=== PATIENT | male | born 1935 | race Caucasian/White ===

== ENCOUNTER 2017-09-06 20:21 | Emergency (ER) | payer OTHER ==
[~2017-09-06] VITALS: Ht 165.1 cm; Wt 74.8 kg
[~2017-09-06 20:21] MED LIST: AFEDITAB; AMLO5 PO; ASPI325 PO; ASPI325EC PO; ATEN100; ATOR40TA; CHOL10002 PO; CIPR500 PO; CLOP75 PO; CYAN1000 PO; DILT360ER; DILT60; DIPASPER; DOXAZOSIN; FERR325 PO; FLUT110OIA; GABA100 PO; GABA300; GLIP10; GLUCOSAMINE-CH1 EA10 PO; HYDACE5325 PO; HYDCHL25 PO; HYDROCHLOROTHIAZIDE; Humalog100 UNIT/1 SC; INSUL100I SC; INSULANI; INSULANPEN SC; INSULANPEN SQ; IRON150C PO; LEVSOD88 PO; LORA10 PO; LORA2 PO; LOSA25 PO; LOSARTAN POTAS100 MG PO; MAGCHL64ER PO; METF500C PO; METF850; METR500 PO; NAPR250; OMEG1CAP30 PO; PANT40 PO; PROSTATE HEALT1 EACH PO; Pravastatin Sod40 MG PO; RANI150 PO; SILSUL1TC TOP; Salmon Oil 1,01 EACH PO; VALS80
[2017-09-06] MEDS ORDERED: FERROUS SULFATE PO (20:32)
[2017-09-06] MEDS ORDERED: AMLO10 PO (20:32)
[2017-09-06] MEDS ORDERED: LEVSOD88 PO (20:32)
[2017-09-06] MEDS ORDERED: PANT40 PO (20:33)
[2017-09-06] MEDS ORDERED: METF500C PO (20:33)
[2017-09-06] MEDS ORDERED: GABA100 PO (20:34)
[2017-09-06] MEDS ORDERED: CLOP75 PO (20:35)
[2017-09-06] MEDS ORDERED: LOSA50 PO (20:35)
[2017-09-06] MEDS ORDERED: RANI150 PO (20:35)
[2017-09-06] MEDS ORDERED: PRAV20 PO (20:35)
[2017-09-06] MEDS ORDERED: HYDCHL25 PO (20:36)
[2017-09-06 20:55] LABS: Source, Urine Clean Catch
[2017-09-06 20:56] LABS: BASOPHILS ABSOLUTE AUTO 0.07 K/mm3 (0.00-0.23); BASOPHILS PERCENT AUTO 1 % (0-2); EOSINOPHILS ABSOLUTE AUTO 0.12 K/mm3 (0.00-0.68); EOSINOPHILS PERCENT AUTO 1 % (0-6); Hemoglobin 12.4 g/dL (13.5-17.5); IMMATURE GRAN ABSOLUTE AUTO 0.04 K/mm3 (0.00-0.10); IMMATURE GRAN PERCENT AUTO 0 % (0-1); LYMPHOCYTES ABSOLUTE AUTO 1.44 K/mm3 (0.84-5.20); LYMPHOCYTES PERCENT AUTO 14 % (21-46); MONOCYTES ABSOLUTE AUTO 0.85 K/mm3 (0.16-1.47); MONOCYTES PERCENT AUTO 8 % (4-13); Mean Corpuscular HGB Conc 35.4 g/dL (31.5-36.5); Mean Corpuscular Volume 85 fL (80-100); Mean Platelet Volume 9.3 fL (9.1-12.4); NEUTROPHILS ABSOLUTE AUTO 7.93 K/mm3 (1.96-9.15); NEUTROPHILS PERCENT AUTO 76 % (41-73); Platelet Count 237 K/mm3 (150-400); RDW Coefficient Variation 12.6 % (11.7-14.2); RDW Standard Deviation 38.5 fL (35.1-46.3); Red Blood Cell Count 4.13 M/mm3 (4.30-5.90); White Blood Cell Count 10.45 K/mm3 (4.00-11.30)
[2017-09-06 20:57] LABS: Bilirubin, Urine Neg (Neg); Blood, Urine 1+ (Neg); Glucose Qualitative, Urine Neg (Neg); Ketones, Urine Neg (Neg); Leukocyte Esterase, Urine Neg (Neg); Nitrite, Urine Neg (Neg); Protein, Urine 2+ (Neg); Specific Gravity, Urine 1.005 (1.003-1.022); Urobilinogen, Urine NORM (Normal)
[2017-09-06 21:07] LABS: Appearance, Urine Clear (Clear); Color, Urine Yellow (P-Yellow)
[2017-09-06 21:13] LABS: Amorphous Light (0-Heavy); Bacteria Not Seen /hpf; Red Blood Cells, Urine 0-2 /hpf (0-2); Squamous Epithelial Cells Not Seen /hpf (Few); White Blood Cells, Urine Not Seen /hpf (0-5)
[2017-09-06 21:16] LABS: Alanine Aminotransfer (ALT/SGP 26 U/L (12-78); Albumin, Blood 3.8 g/dL (3.4-5.0); Alk Phos 91 U/L (50-136); Anion Gap 11 mmol/L (6-16); Aspartate Aminotrans (AST/SGOT 20 U/L (12-37); Bilirubin, Total 0.4 mg/dL (0.1-1.0); Blood Urea Nitrogen 23 mg/dL (8-24); Bun/Creatinine Ratio 23.4 (12.0-20.0); CO2, Blood 22 mmol/L (21-32); Calcium, Blood 9.9 mg/dL (8.5-10.1); Chloride, Blood 108 mmol/L (98-108); Creatinine, Blood 0.98 mg/dL (0.60-1.20); Globulin, Blood 3.9 g/dL (2.2-4.0); Glomerular Filtration Rate >60 (60-); Glucose, Blood 107 mg/dL (70-99); Potassium, Blood 3.7 mmol/L (3.5-5.5); Sodium, Blood 141 mmol/L (136-145); Total Protein, Blood 7.7 g/dL (6.4-8.2)
[2017-09-06] MEDS ORDERED: INSULANPEN SC ×2 (22:08)
[2017-09-06] MEDS ORDERED: Novolog100 UNIT/1 SC (22:09)
[2017-09-07 00:29] LABS: Troponin I <0.015 ng/mL (0.000-0.040)
[2018-01-13] MEDS ORDERED: HYDR1TAB94 PO (13:13)
[2018-01-13] MEDS ORDERED: CLOP75 PO (13:15)
[2018-01-13] MEDS ORDERED: Naprosyn500 MG PO (14:22)
[2018-01-13] MEDS ORDERED: Percocet 5-3251 EACH PO (14:22)
== END 2017-09-07 01:02 | disposition home or self-care (01) ==
LOC: ER 20:21
PROVIDERS: Emergency Medicine
DX: R42 Dizziness and giddiness (principal); R55 Syncope and collapse; E11.9 Type 2 diabetes mellitus without complications; I10 Essential (primary) hypertension; I48.91 Unspecified atrial fibrillation; Z88.0 Allergy status to penicillin; Z88.1 Allergy status to other antibiotic agents; Z79.899 Other long term (current) drug therapy; Z79.4 Long term (current) use of insulin; Z87.891 Personal history of nicotine dependence; Z86.73 Personal history of transient ischemic attack (TIA), and cerebral infarction without residual deficits
CPT/HCPCS: 36415; 80053; 81001; 83880; 84484; 85025; 93005; 93010; 99283

== ENCOUNTER 2018-01-13 12:30 | Emergency (ER) | END 2018-01-13 18:09 | disposition home or self-care (01) ==

== ENCOUNTER 2018-12-18 20:19 | Inpatient (IN) | payer OTHER ==
[~2018-12-18] VITALS: Ht 175.3 cm; Wt 63.7 kg
[~2018-12-18 20:19] MED LIST changes: +AMLO10 PO; +FERROUS SULFATE PO; +HYDR1TAB94 PO; +LOSA50 PO; +Naprosyn500 MG PO; +Novolog100 UNIT/1 SC; +PRAV20 PO; +Percocet 5-3251 EACH PO; +Synthroid88 MCG PO
[2018-12-18 21:23] LABS: BASOPHILS ABSOLUTE AUTO 0.05 K/mm3 (0.00-0.23); BASOPHILS PERCENT AUTO 1 % (0-2); EOSINOPHILS ABSOLUTE AUTO 0.14 K/mm3 (0.00-0.68); EOSINOPHILS PERCENT AUTO 2 % (0-6); Hematocrit 33.1 % (37.0-53.0); IMMATURE GRAN ABSOLUTE AUTO 0.03 K/mm3 (0.00-0.10); IMMATURE GRAN PERCENT AUTO 0 % (0-1); LYMPHOCYTES ABSOLUTE AUTO 1.44 K/mm3 (0.84-5.20); LYMPHOCYTES PERCENT AUTO 18 % (21-46); MONOCYTES PERCENT AUTO 10 % (4-13); Mean Corpuscular HGB Conc 33.2 g/dL (31.5-36.5); Mean Corpuscular Volume 93 fL (80-100); Mean Platelet Volume 9.3 fL (9.1-12.4); NEUTROPHILS ABSOLUTE AUTO 5.39 K/mm3 (1.96-9.15); NEUTROPHILS PERCENT AUTO 69 % (41-73); Platelet Count 203 K/mm3 (150-400); RDW Standard Deviation 47.7 fL (35.1-46.3); Red Blood Cell Count 3.55 M/mm3 (4.30-5.90); White Blood Cell Count 7.85 K/mm3 (4.00-11.30)
[2018-12-18 21:35] LABS: Alanine Aminotransfer (ALT/SGP 23 U/L (12-78); Albumin, Blood 3.3 g/dL (3.4-5.0); Alk Phos 107 U/L (50-136); Anion Gap 9 mmol/L (6-16); Aspartate Aminotrans (AST/SGOT 18 U/L (12-37); Bilirubin, Total 0.5 mg/dL (0.1-1.0); Blood Urea Nitrogen 16 mg/dL (8-24); Bun/Creatinine Ratio 19.3 (12.0-20.0); CO2, Blood 26 mmol/L (21-32); Calcium, Blood 9.4 mg/dL (8.5-10.1); Chloride, Blood 105 mmol/L (98-108); Creatinine, Blood 0.83 mg/dL (0.60-1.20); Globulin, Blood 3.4 g/dL (2.2-4.0); Glomerular Filtration Rate >60 (60-); Glucose, Blood 124 mg/dL (70-99); Potassium, Blood 3.9 mmol/L (3.5-5.5); Sodium, Blood 140 mmol/L (136-145); Total Protein, Blood 6.7 g/dL (6.4-8.2)
[2018-12-18 21:40] LABS: International Normalized Ratio 0.96; Prothrombin Time Results 10.2 Sec (9.7-11.5)
[2018-12-19 02:37] LABS: Source, Urine Clean Catch
[2018-12-19 02:40] LABS: Bilirubin, Urine Neg (Neg); Blood, Urine 2+ (Neg); Glucose Qualitative, Urine Neg (Neg); Ketones, Urine 1+ (Neg); Leukocyte Esterase, Urine Neg (Neg); Nitrite, Urine Neg (Neg); Protein, Urine 4+ (Neg); Urobilinogen, Urine NORM (Normal)
[2018-12-19 02:47] LABS: Appearance, Urine Clear (Clear); Color, Urine Yellow (P-Yellow)
[2018-12-19 02:48] LABS: Squamous Epithelial Cells Not Seen /hpf (Few); White Blood Cells, Urine Rare /hpf (0-5)
[2018-12-19 02:49] LABS: Bacteria Rare /hpf; Hyaline Casts 0-2 /lpf (0-2)
--- NOTE | 2018-12-19 06:39 | NUR ---
SUMMARY NO ACUTE CHANGES NOTED SINCE ADMISSION TO THE FLOOR. PT REMAINS CONFUSED AND LETHARGIC. VSS, RESP UNLABORED. PT WILL RESPOND TO VERBAL STIMULATION. BED ALARM FOR SAFETY. FAMILY HAS NOT BEEN IN CONTACT. ER NURSE STATED THAT SHE HAD LEFT VOICEMAILS LETTING THE FAMILY KNOW THEY NEEDED TO CONTACT US. PT'S SON SAID HE WAS GOING TO GET THE PT'S AND COME BACK BUT NEVER RETURNED. PT IS ON ROOM AIR. C-COLLAR IN PLACE UPON ADMISIION, PT IS INCONTINENT, ATTENDS IN PLACE, CHANGED PRN. CALL LIGHT IN REACH, WCTM.
--- NOTE | 2018-12-19 13:49 | NUR ---
Patient is lying in bed and resting but easily awakens to the sound of his name. Patient shared about his family, his boo and his current medical status. I listened empathically, provided a calming presence and provided prayer. While I was praying patient would interupt and add to the list the things he would like me to pray for. This went on for several requests and was quite endearing. Patient responded well and showed evidence of an elevated mood.
--- NOTE | 2018-12-19 16:20 | NUR ---
SHIFT SUMMARY THE PATIENT PRESENTED THIS SHIFT WITH VITALS WNL, A&O TO SELF AND SOME SURROUNDINGS, AND WITH LUNG SOUNDS THAT WERE DIMINISHED THROUGHOUT. THE PATIENT HAS DIFFICULTY COMMUNICATING WITH ANY THING MORE THAN A GARRY OR NO ANSWERS. THE PATIENT HAS SHOWN IMPULSIVE BEHAVIORS THIS AFTERNOON, GETTING OUT OF BED OR OUT OF HIS CHAIR WITHOUT HELP. THE PATIENT HAD A B/M THIS AFTERNOON. THE PATIENT IS RESTING AT THIS TIME, WILL CONTINUE TO MONITOR.
--- NOTE | 2018-12-20 04:34 | NUR ---
SUMMARY: 83 Y/O MALE AT BEGINNING SHIFT CLIMBED OOB BED AND BECAME COMBATIVE WITH STAFF TRYING TO ASSIST BACK TO BED. PT PLACED IN SIMA VEST WITH 4 POINT SOFT WRIST RESTRAINT ( NOTIFIEED FOR ORDER). PT SLEPT COMFORTABLY ALL EVENING AND REPOSITION Q2H BY STAFF AND ASSISTED WITH ADLS. PTS THOUGHT PROCESS IS DISORGANIZED WITH MUMBLING TO SELF NOTED AT TIMES WHILE STAFF AT SIDE. PT APPEARS TO HAVE NO PAIN, NO NAUSEA NOTED. PTS BED ALARM APPLIED, BED LOW POSITION, [place] J COLLAR INTACT.
[2018-12-20 06:07] LABS: CHOL/HDL RATIO 3.4; Cholesterol 200 mg/dL (50-200); HDL Cholesterol 58 mg/dL (>39); Low Density Lipoprotein Chol 116 mg/dL (0-110); Triglycerides 129 mg/dL (30-160); Very Low Density Lipoprot Chol 25 mg/dL (6-32)
--- NOTE | 2018-12-20 12:44 | NUR ---
ECHOCARDIOGRAM COMPLETE
--- NOTE | 2018-12-20 16:54 | NUR ---
SHIFT SUMMARY NO ACUTE CHANGES. PATIENT UP IN CHAIR FOR MEALS. PT WORKED WITH PATIENT TODAY. SPEECH EVALUATED PATIENT, REGULAR DIET RECOMMENDED. PATIENT COMBATIVE AND AGITATED WITH PERSONAL CARE AND REDIRECTION. PATIENT IN POSY VEST. NO COMPLAINTS OF PAIN, NAUSEA, OR SHORTNESS OF BREATH. PATIENT NAPPING IN THE AFTERNOON. FAMILY CAME TO VISIT BUT PATIENT WAS YELLING AT THEM TO LEAVE. CALL LIGHT IN REACH, WILL CONTINUE TO MONITOR.
--- NOTE | 2018-12-21 06:40 | NUR ---
12/21/18 0545 AWAKE AND TALKING HAPPILY. VITALS STABLE THIS AM. DENIES ANY S/S OR DISCOMFORT. REPOSITIONED Q 2 HOURS BUT DOES MOVE AROUND IN BED AND LIKES TO BE SUPINE. OCC. VISUAL HALLUCINATIONS LAST NIGHT. OCC. COMBATIVE WITH TURNING BUT WILL HELP TURN WHEN ASKED. INCONT. OF URINE AND STOOL THIS SHIFT.
--- NOTE | 2018-12-21 17:14 | NUR ---
REPORTED EPISODES DIARRHEA TO DR. SHEPHERD NO NEW ORDERS RECEIVED.
--- NOTE | 2018-12-21 18:37 | NUR ---
SHIFT SUMMARY NO ACUTE CHANGES. PATIENT INCREASINGLY COMBATIVE WITH CARE. SEVERAL STAFF REQUIRED TO ASSIST WITH ATTENDS CHANGE AND LINEN CHANGE DUE TO HITTING AND KICKING. PATIENT CONTINUES TO REQUIRE POSY VEST. PATIENT HAD SEVERAL EPISODES OF DIARRHEA THIS SHIFT, IS AWARE. CALL LIGHT IN REACH, WILL CONTINUE TO MONITOR.
--- NOTE | 2018-12-22 00:59 | NUR ---
12/22/18 0050 YELLING "KEEP CLEAR! WATCH OUT!" VISUAL AND AUDITORY HALLUCINATIONS PRESENT. RN REASSURED BUT JUST YELLING PROFANITY TO RN.
--- NOTE | 2018-12-22 02:14 | NUR ---
12/22/18 0145 C/O general abd. discomfort and needing to have a BM. AGREED TO TAKING A SUPP. BUT WHEN RN CAME WITH IT SHE DECLINED SUPP FOR NOW.
--- NOTE | 2018-12-22 06:44 | NUR ---
12/22/18 0630 UNABLE TO OBTAIN STOOL SAMPLE DUE TO STOOLS BEING WATERY IN ATTEND/LINENS. VITALS STABLE. GOOD ORAL AND BALWINDER-CARE WITH EACH TURN.
--- NOTE | 2018-12-22 09:55 | NUR ---
NOTIFIED DR. PEACE PT HAS BLOOD SUGARS CHECKED AC/HS BUT DOES NOT HAVE ANY INSULIN COVERAGE ORDERED AND THE PT'S BLOOD SUGAR IS [address] PEAEC SAID TO PUT PT ON HUMALOG MEDIUM SLIDING SCALE. DR. PEACE SAID TO D/C ORDER FOR STOOL SAMPLE TO RULE OUT CDIFF AND TO CALL HIM IF ABLE TO COLLECT A STOOL SAMPLE FOR ORDERS. NO OTHER NEW ORDERS AT THIS TIME.
--- NOTE | 2018-12-22 18:32 | NUR ---
SHIFT SUMMARY- PT RESPONDS TO VERBAL STIMULI. PT DOES NOT APPEAR TO BE IN ANY PAIN/DISCOMFORT. PT COMBATIVE WITH CARE AT TIMES. PT IN SIMA. MEDS GIVEN PER EMAR. RESP E/U ON RA. BEDREST AT THIS TIME. TURNS Q2H. FAMILY FRIEND IN TO VISIT THIS PM. NO OTHER SIGNIFICANT CHANGES THIS SHIFT.
--- NOTE | 2018-12-23 03:20 | NUR ---
12/22/182129 SPOKE WITH ON PHONE AND UPDATED HER ON PT'S CONDITION. INFORMED HER THAT PT WAS ON RESTRAINTS DUE TO HIS CONFUSION/COMBATIVENESS AND TO KEEP HIM SAFE. SHE DID AGREE WITH THIS SAFETY MEASURE. SHE WANTED TO KNOW "HIS PROGNOSIS". INFORMED HER THAT SHE WILL NEED TO SPEAK WITH THE MD REGARDING THIS QUESTION.
--- NOTE | 2018-12-23 07:28 | NUR ---
NURSE CALLED TO VERIFY THAT PT IS BEING MONITORED AT THIS TIME
--- NOTE | 2018-12-23 09:44 | NUR ---
UPON MORNIGN MED ADMINISTRATION, PT REFUSED HELP WITH LIFT CUP AND STRAW TO MOUTH. PT DID NOT ANSWER WHEN NURSE ASKED HOW PT TAKES HIS PILLS. WHEN NURSE REPEATED THE QUESTION, PT YELLED AT NURSE FOR REPEATING THE QUESTION. PT WAS UNSUCESSFULLY ATTEMPTING TO GET STRAW INTO HIS MOUTH, UNAWARE HE WAS AIMING STRAW INTO COLLAR. PT THEN WAS ABLE TO REACH HIS MOUTH AFTER MULTIPLE ATTEMPTS. AFTER A FEW MINUTES, NURSE HANDED PT HIS MEDICATIONS. PT SAT WITH THEM IN HIS HANDS. AFTER A FEW MORE MINUTES, NURSE ASKED PATIENT TO TAKE HIS MEDICATIONS. HE THEN YELLED AT NURSE. NURSE ASKED HIS TO EITHER TAKE THE MEDICATIONS OR HAND THEM BACK TO NURSE. PT REFUSED BOTH. PILLS THEN SPILLED ALL OVER HIS BED. NURSE COLLECTED PILLS AND CHARTED "NOT GIVEN, PT REFUSED" PT THEN SAID "MAYBE I'LL ACCUSE YOU OF STEALING MY PILLS!" NURSE THEN EXITED THE ROOM AND NOTIFIED CHARGE NURSE
--- NOTE | 2018-12-23 18:38 | NUR ---
SHIFT SUMMARY PT AXO TO SELF AND SPOUSE BUT HAVING AUDITORY AND VISUAL HALLUCINATIONS THIS SHIFT. AC STARTED THIS SHIFT PER EMAR THOUGH PT REFUSED HIS MORNING MEDICATIONS, SEE NOTE. UP FOR A WALK WITH PHYSICAL THERAPY, SEE NOTE. PT CONTINUES TO NEED SIMA FOR SAFETY. IV PATENT AND SALINE LOCKED. BED IN LOW POSITION, CALL LIGHT WITHIN REACH, BED ALARM ON. PT ON MONITOR WELL.
--- NOTE | 2018-12-24 03:44 | NUR ---
SHIFT SUMMARY PT RESTING QUIETLY, LF IN SIMA VEST, WATCHING TV DURING SHIFT REPORT. PT'S SPEECH IS DIFFICULT TO UNDERSTAND; PARTLY D/T ACCENT AND PARTLY D/T CONFUSION. PT CAN BE PLEASANT AND CO-OP AT TIMES, IF KEPT DISTRACTED WHILE PROVIDING CARE. PT SOMETIMES BECOMES AGITATED AND OUT OF CONTROL IF HE DOES NOT WANT TO BE HELPED. PER SHIFT REPORT, PT UNABLE TO RETURN HOME UNABLE TO CARE FOR HIM WHEN OUT OF CONTROL. NO S/SX OF DISTRESS NOTED OR REPORTED. PT DENIED PAIN. BED ALARM ON FOR SAFETY. CALL LT IN REACH.
--- NOTE | 2018-12-24 07:31 | NUR ---
THIS MORNING, WHEN JULIA FERRER ATTEMPTED TO MEASURE VITAL SIGNS, PT REFUSED. PT BECAME AGGITATED AND COMBATIVE. HEEL NAILING MACHINE OPERATOR NOTIFIED NURSE.
--- NOTE | 2018-12-24 09:52 | NUR ---
AT 0831 NURSE ENTERED ROOM TO ASSESS PT. PT AGGITATED AND SWINGING AT NURSE, ATTEMPTING OOB, KICKING LEGS. NURSE LEFT ROOM TO ORDER PRN AGGITATION MEDICATION PER EMAR. NURSE REQUESTED FROM PHARMACY THEN WAITED FOR MED TO ARRIVE. UPON ARRIVAL NURSE IN TO ASSESS PT AND GIVE THAT MEDICATION. PHYSICIAN IN ROOM. PT NO LONGER AGGITATED AT THAT TIME SO AGGITATION MED WAS NOT ADMINISTERED. PT COOPERATIVE AFTER DR PEACE IN.
--- NOTE | 2018-12-24 19:34 | NUR ---
SHIFT SUMMARY PT AXO TO SELF, BIRTHDAY AND PLACE. PT CONTINUES TO HALLUCINATE A REACH FOR THINGS THAT ARE NOT THERE. PSYCHIATRY CONSULT THIS SHIFT, SEE NOTE. PT STOOD AND USED URINAL TO VOID 300ML. URINE WAS TEA COLORED WITH STRONG ODOR. PT STOOL CONTINUES TO BE LIQUID WITH SOME "CHUNKS" IN IT. PT UP TO CHAIR FOR MEALS, REQUIRED FEEDING ASSISTANCE THOUGH REFUSES HELP AT TIMES. SIMA CONTINUES TO BE INDICATED FOR RISK FOR FALLS DESPITE BED ALARM AND MONITOR. NURSE DID NOT FEEL IT WAS SAFE TO REMOVE THIS SHIFT. IV PATENT, SALINE LOCKED AND CONCEALED. BED IN LOW POSITION, CALL LIGHT WITHIN REACH THOUGH PT DOES NOT CALL. BED ALARM ON.
--- NOTE | 2018-12-25 04:00 | NUR ---
SHIFT SUMMARY PT AWAKE AT START OF SHIFT, RESTING QUIETLY, TALKING TO HIMSELF. DINNER TRAY MOSTLY UNTOUCHED, BUT PT REFUSED ASSISTANCE WITH EATING AND DID NOT WANT TO EAT ANYTHING HIMSELF. PT A LITTLE CALMER TONIGHT THAN LAST NIGHT. HAS BEEN ABLE TO SLEEP MOST OF SHIFT. WAKES EASILY FOR CARE. PT WAITING PLACEMENT PT'S UNABLE TO CARE FOR HIM ANY MORE. NO ACUTE CHANGES TO PRESENT. WILL CONTINUE TO MONITOR. BED ALARM ON FOR SAFETY.
--- NOTE | 2018-12-25 10:42 | NUR ---
PT WAKE AND ATTEMPTING TO CLIMB OOB, REMOVED HIS C COLLAR AND BRIEF. NEW BRIEF PLACED, C COLLAR REPLACED AND PT REPOSITIONED IN THE BED, PT WAS FAIRLY COOPERATIVE WITH THE ABOVE. ATTEMPTED TO GIVE MEDICATIONS AND PT REFUSED, SPITTING OUT PILLS, THREATENING TO HIT RN AND THEN THREW HIS WATER AT STAFF.
--- NOTE | 2018-12-25 18:46 | NUR ---
NO ACUTE CHANGES NOTED THIS SHIFT. PT HAS HAD PERIODS OF COOPERATION AND PERIODS OF IMPULSIVE BELIGERENT BEHAVIOR. HE HAS BEEN REMOVED FROM THE SIMA VEST AND HAS BEEN COOPERATIVE WITHT HE TRAFFIC OPERATIONS MANAGER, USING THE BSC. WILL CONTINUE TO MONITOR AND REPORT TO AARON PENNY
--- NOTE | 2018-12-26 04:32 | NUR ---
Shift summary: Elba has been unhooked for shift. Pt has tried to get out of bed several times but has not fallen. Pt requires both the bed alarm and the school bus monitor to keep him in bed. Pt very unsteady on his feet. Pt does not understand a call light at all. C- collar on at all times.
[2018-12-26 07:40] LABS: Source, Urine Voided
[2018-12-26 07:43] LABS: Appearance, Urine Clear (Clear); Bilirubin, Urine Neg (Neg); Blood, Urine Neg (Neg); Color, Urine Yellow (P-Yellow); Glucose Qualitative, Urine Neg (Neg); Ketones, Urine Neg (Neg); Leukocyte Esterase, Urine Neg (Neg); Nitrite, Urine Neg (Neg); Protein, Urine Neg (Neg); Specific Gravity, Urine 1.015 (1.003-1.022); Urobilinogen, Urine NORM (Normal)
--- NOTE | 2018-12-26 11:39 | NUR ---
SPOKE WITH DR. PEACE ABOUT THE PATIENT WHO REFUSED HIS MORNING MEDICATIONS. HIS BLOOD SUGAR CAME OUT AT 407 AT LUNCHTIME. CALLED THE DOCTOR AND EXPLAINED THE MORNING. HE REQUESTED A SECOND BLOOD SUGAR DONE AT 1300 AND PATIENT WAS GIVEN THE 12 UNITS OF INSULIN HE WAS AGREEABLE TO THIS AT THIS TIME.
--- NOTE | 2018-12-26 16:20 | NUR ---
SHIFT SUMMARY PATIENT PLEASANT, NO ACUTE CONCERNS. MILDLY UNCOOPERATIVE. HE DID NOT TAKE HIS MEDICATIONS TODAY ALTHOUGH HE DID TAKE HIS INSULIN AT LUNCH TIME. WILL FACILITATE CHANGE IF NEEDED. NO ACUTE CONCERNS, NO PAIN NOTED BY THE PATIENT. CURRENTLY THE PATIENT IS RESTING. HE HAD A SHOWER TODAY AND DID VERY WELL. STILL IMPULSIVE NO RESTRAINTS AT THIS TIME.
--- NOTE | 2018-12-27 06:23 | NUR ---
Rn summary: Patient is alert to self, knows month and year. He thought he was at [facility]. Pt unable to answer rounding questions appropriately. Pt is up at times impulsively. Pt needs 1 assist. Lungs were clear. No weakness noted. Pt continues with cervical collar. Pt takes pills whole with water. Pt has rested well most of night. Bed alarm on and call light in reach. Plan is for appropriate placement.
--- NOTE | 2018-12-27 17:54 | NUR ---
SHIFT SUMMARY PATIENT HAS BEEN MUCH MORE PLEASANT AND REDIRECTABLE TODAY. AT THIS TIME I BELIEVE THE PATIENT IS GETTING BORED AND HAS BEEN REDIRECTED WITH OTHER OPPORTUNITIES.
--- NOTE | 2018-12-28 04:44 | NUR ---
SHIFT SUMMARY: 83 Y/O MALE RESTED COMFORTABLY ALL EVENING. PT REMOVED C-COLLAR X1 LAST NIGHT AND WAS IMMEDIATELY REPLACED BACK ON BY THIS NURSE. PT IS ALERT AND ORIENTED X2, FOLLOWING ALL SIMPLE VERBAL COMMANDS. PT DENIES PAIN OR NAUSEA. PTS BED ALARM APPLIED, BED LOW POSITION, CALL LIGHT AT SIDE. PT VOIDED PER URINAL WITHOUT ISSUE.
--- NOTE | 2018-12-28 16:27 | NUR ---
SHIFT SUMMARY PATIENT HAS BEEN WALKING THE HALLS WITH THE AID TODAY. NO ACUTE CONCERNS. STILL IMPULSIVE BUT HAS BEEN WORN OUT WITH EXTRA WALKS. WILL ASSESS FOR ANY CHANGES.
--- NOTE | 2018-12-28 21:12 | NUR ---
PT BLOOD GLUCOSE 443, Parisa MORENO, PUTTY MAKER CALLED WITH ORDERS TO RECHECK IN ONE HOUR AND INCREASE TO HUMALOG HIGH SLIDING SCALE.
--- NOTE | 2018-12-29 00:02 | NUR ---
BLOOD GLUCOSE 48, PT DRANK 240ML APPLE JUICE, PLAN TO RECHECK GLUCOSE IN 1 HOUR. LATRELL BRICE, METERS SUPERINTENDENT NURSE ADVISED.
--- NOTE | 2018-12-29 01:01 | NUR ---
PT BLOOD GLUCOSE 79, PATIENT RESTING COMFORTABLY. PLAN RECHECK GLUCOSE IN 1 HOUR. CHARGE NURSE LATRELL Seals RN ADVISED AND IN CONCURRENCE.
--- NOTE | 2018-12-29 03:54 | NUR ---
SHIFT SUMMARY: 83 Y/O MALE RESTED COMFORTABLY ALL EVENING. PT STILL DECLINING TO ALLOW STAFF TO APPLY C-COLLAR (NO NEUROLOGICAL DEFICITS NOTED). PT HAD ISSUES WITH HIGH BLOOD SUGAR AT [phone] WITH COVERAGE GIVEN. PTS BLOOD SUGAR RECHECKED AND WITH LAST CHECK AT 0300 REFLECTING 79. PT CONTINUES TO CLIMB OOB IMPULSIVELY WITHOUT RINGING CALL LIGHT FOR ASSISTANCE (BED ALARM APPLIED). PT ALERT AND ORIENTED X 2; ABLE TO FOLLOW SIMPLE VERBAL COMMANDS. PT DENIES PAIN OR NAUSEA. PTS BED IN LOW POSITION, CALL LIGHT AT SIDE.
--- NOTE | 2018-12-29 07:39 | NUR ---
VERIFIED VIDEO MONITORING CALLED VIDEO MONITOR ANNALISA MCALLISTER TO VERIFY THE PT WAS BEING MONITORED VIA CAMERA FOR SAFETY. SHE CONFIRMED MONITORING
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
--- NOTE | 2018-12-30 05:11 | NUR ---
SHIFT SUMMARY: 83 Y/O MALE UP AMBULATED AROUND ENTIRE LOOP OF NURSING FLOOR VIA WALKER X 1 STANDBY ASSIST WITH GAIT SLOW AND STEADY. PT ALERT AND ORIENTED X3 AND CONVERSED WITH STAFF WITH ORGANIZED THOUGHTS. PT WORE C-COLLAR ENTIRE SHIFT WITHOUT ISSUE. PT DENIES PAIN OR NAUSEA. PTS BED ALARM APPLIED, BED LOW POSITION, CALL LIGHT AT SIDE.
--- NOTE | 2018-12-30 07:42 | NUR ---
CALLED VIDEO MONITOR CONFIRMED PT IS VIDEO MONITORED WITH MONITOR ANNALISA MCALLISTER
--- NOTE | 2018-12-30 17:36 | NUR ---
SHIFT SUMMARY 83 YR OLD MALE ADMITTED FOR ACUTE ENCEPHALOPATHY. FRACTURED NECK- WEARS A C-COLLAR. CARDIAC/ADA DIET. WALKS INDEPENDENTLY W/FWW -BUT I STANDBY/OBSERVE DUE TO HIS CONFUSION. PILLS WHOLE W/APPLESAUCE. HE IS ACHS. HX: HTN, TIA, AFIB, DM 2. LIVES W/ BUT REQUIRES PLACEMENT. ANKUR WAS ASSESSING THIS PT, BUT I HAVE HEARD NOTHING FURTHER FROM THEM. CONTINENT. HE IS MUCH IMPROVED FROM LAST WEEK. I AM TOLD HE WAS IN RESTRAINTS THEN. HE IS EASILY RE-DIRECTABLE. CALM AND COOPERATIVE.
--- NOTE | 2018-12-31 04:48 | NUR ---
PHOTORADIO OPERATOR SUMMARY NO ACUTE CHANGES THIS SHIFT. PT AAOX2 WITH SOME INTERMITTENT CONFUSION BUT HAS BEEN PLEASANT AND COOPERATIVE WITH CARE. BED ALARM ON FOR SAFETY PT IS STILL IMPULSIVE BUT HAS FAIRLY STEADY GAIT WITH A 1 PERSON ASSIST. PT DENIES PAIN, SOB, N/V. NO OTHER COMPLAINTS/CONCERNS. VSS, WILL CONTINUE TO MONITOR.
--- NOTE | 2018-12-31 09:22 | NUR ---
REFUSED SOME MEDICATTIONS THIS A.M. SPIT TWO PILLS ACROSS THE ROOM. SEE MAR.
--- NOTE | 2018-12-31 11:12 | NUR ---
KARLI MENDOZA IN ROOM EVALUATING PT.
--- NOTE | 2018-12-31 18:23 | NUR ---
SHIFT SUMMARY PATIENT IS ALERT AND ORIENTED TO PLACE AND SITUATION. HE SEEMS TO HAVE A DIFFICULT TIME REMEMBERING THINGS SUCH USING THE PHONE. HE HAS ALSO HAD ISSUES WITH INCONTONENECE THROUGHOUT THE DAY BUT IS ABLE TO MAKE HIS WAY TO THE RESTROOM INDEPENDENTLY. HE IS INDEPENDENT IN HIS ROOM AND ENJOYS WALKING IN THE [place]. HIS CAMERA HAS BEEN TURNED OFF FOR THIS REASON. HE CONTINUES TO TAKE HIS PILLS WITH PUDDING DESPITE BEING ABLE TO EAT MEALS AND SWALLOW WELL. HIS WIFES NAME IS KILLIAN--HER PHONE NUMBER IS ON THE BOARD.
--- NOTE | 2019-01-01 04:22 | NUR ---
SLIVER LAP TENDER SUMMARY NO ACUTE CHANGES. PT AAOX2, PLEASANT AND COOPERATIVE. INDEPENDENT IN HIS ROOM. REQUIRES REORIENTATION AT TIMES. DENIES PAIN, SOB, N/V. VSS. PT AWAITING PLACEMENT. WILL CONTINUE TO MONITOR.
[2019-01-01] MEDS ORDERED: ASPI81CH PO (09:15)
[2019-01-01] MEDS ORDERED: XARELTO20 MG PO (09:15)
[2019-01-01] MEDS ORDERED: Humalog100 UNIT/3 SC (09:21)
== END 2019-01-01 11:12 | disposition home health service (06) | DRG 314 ==
LOC: ER 20:19 → MEDS 20:20 → ENPENDDIS 01-01 08:54 → MEDS 01-01 11:12
PROVIDERS: Family Medicine; Nurse Practitioner Psychiatric/Mental Health; Physician Assistant; ADMIT Internal Medicine
DX: T82.897A Other specified complication of cardiac prosthetic devices, implants and grafts, initial encounter (principal); G92 Toxic encephalopathy; I63.9 Cerebral infarction, unspecified; S12.100A Unspecified displaced fracture of second cervical vertebra, initial encounter for closed fracture; R47.01 Aphasia; I10 Essential (primary) hypertension; I35.0 Nonrheumatic aortic (valve) stenosis; Z79.02 Long term (current) use of antithrombotics/antiplatelets; Z95.2 Presence of prosthetic heart valve; E11.9 Type 2 diabetes mellitus without complications; R46.89 Other symptoms and signs involving appearance and behavior; Z87.820 Personal history of traumatic brain injury; Z87.891 Personal history of nicotine dependence; I48.91 Unspecified atrial fibrillation; Z78.1 Physical restraint status; M47.812 Spondylosis without myelopathy or radiculopathy, cervical region; Z79.4 Long term (current) use of insulin; W06.XXXA Fall from bed, initial encounter; Z91.81 History of falling; Y92.234 Operating room of hospital as the place of occurrence of the external cause
CPT/HCPCS: 36415; 70450; 70551; 80053; 80061; 81001; 81003; 82947; 85025; 85610; 92507; 92523; 93005; 93010; 93306; 93880; 96372; 97110; 97112; 97116; 97162; 97166; 97530; 97535; 99285-25; G0378; J1650

== ENCOUNTER 2019-02-02 17:27 | Emergency (ER) | payer OTHER ==
[~2019-02-02] VITALS: Ht 177.8 cm; Wt 59.0 kg
[~2019-02-02 17:27] MED LIST changes: +ASPI81CH PO; +Humalog100 UNIT/3 SC; +XARELTO20 MG PO
[2019-02-02 18:05] LABS: BASOPHILS ABSOLUTE AUTO 0.05 K/mm3 (0.00-0.23); BASOPHILS PERCENT AUTO 1 % (0-2); EOSINOPHILS ABSOLUTE AUTO 0.05 K/mm3 (0.00-0.68); EOSINOPHILS PERCENT AUTO 1 % (0-6); Hematocrit 27.7 % (37.0-53.0); Hemoglobin 9.2 g/dL (13.5-17.5); IMMATURE GRAN ABSOLUTE AUTO 0.08 K/mm3 (0.00-0.10); IMMATURE GRAN PERCENT AUTO 1 % (0-1); LYMPHOCYTES ABSOLUTE AUTO 1.12 K/mm3 (0.84-5.20); LYMPHOCYTES PERCENT AUTO 19 % (21-46); MONOCYTES ABSOLUTE AUTO 0.67 K/mm3 (0.16-1.47); MONOCYTES PERCENT AUTO 11 % (4-13); Mean Corpuscular HGB 30.3 pg (26.0-34.0); Mean Corpuscular HGB Conc 33.2 g/dL (31.5-36.5); Mean Corpuscular Volume 91 fL (80-100); Mean Platelet Volume 9.4 fL (9.1-12.4); NEUTROPHILS ABSOLUTE AUTO 3.93 K/mm3 (1.96-9.15); NEUTROPHILS PERCENT AUTO 67 % (41-73); Platelet Count 178 K/mm3 (150-400); RDW Coefficient Variation 14.2 % (11.7-14.2); Red Blood Cell Count 3.04 M/mm3 (4.30-5.90)
[2019-02-02 18:20] LABS: International Normalized Ratio 1.04
[2019-02-02 18:25] LABS: Ethanol (Alcohol), Blood, Med 18 mg/dL
[2019-02-02 18:33] LABS: Alanine Aminotransfer (ALT/SGP 27 U/L (12-78); Albumin, Blood 2.6 g/dL (3.4-5.0); Alk Phos 85 U/L (50-136); Anion Gap 9 mmol/L (6-16); Aspartate Aminotrans (AST/SGOT 28 U/L (12-37); Bilirubin, Total 0.6 mg/dL (0.1-1.0); Blood Urea Nitrogen 16 mg/dL (8-24); Bun/Creatinine Ratio 18.1 (12.0-20.0); CO2, Blood 22 mmol/L (21-32); Calcium, Blood 7.5 mg/dL (8.5-10.1); Chloride, Blood 110 mmol/L (98-108); Creatinine, Blood 0.88 mg/dL (0.60-1.20); Globulin, Blood 2.5 g/dL (2.2-4.0); Glomerular Filtration Rate >60 (60-); Glucose, Blood 317 mg/dL (70-99); Potassium, Blood 3.1 mmol/L (3.5-5.5); Sodium, Blood 141 mmol/L (136-145); Total Protein, Blood 5.1 g/dL (6.4-8.2)
[2019-05-20] MEDS ORDERED: TRULICITY1.5 MG/0.5 SC (14:19)
[2019-05-20] MEDS ORDERED: VITAMIN D35000 UNIT SL (14:20)
[2019-05-20] MEDS ORDERED: VITAMIN B122500 MCG PO (14:29)
[2019-05-20] MEDS ORDERED: FERSU300 PO (14:31)
[2019-05-20] MEDS ORDERED: FOLI1 PO (14:31)
== END 2019-02-02 18:30 | disposition short-term general hospital (02) ==
LOC: ER 17:27
PROVIDERS: Emergency Medicine
DX: S06.9X9A Unspecified intracranial injury with loss of consciousness of unspecified duration, initial encounter (principal); S12.110A Anterior displaced Type II dens fracture, initial encounter for closed fracture; R07.9 Chest pain, unspecified; V49.9XXA Car occupant (driver) (passenger) injured in unspecified traffic accident, initial encounter; Z88.0 Allergy status to penicillin; Z88.1 Allergy status to other antibiotic agents; Z79.899 Other long term (current) drug therapy; Z79.4 Long term (current) use of insulin; Z79.82 Long term (current) use of aspirin; I10 Essential (primary) hypertension; E11.9 Type 2 diabetes mellitus without complications; Z86.73 Personal history of transient ischemic attack (TIA), and cerebral infarction without residual deficits; I48.91 Unspecified atrial fibrillation; Z87.891 Personal history of nicotine dependence
CPT/HCPCS: 51702; 70450; 71045; 71260; 72125; 74177; 80053; 82947; 83690; 85025; 85610; 85730; 86850; 86900; 86901; 93005; 93010; 96361-59; 96374-59; 99291-25; G0480; J3010; J7030; Q9967

== ENCOUNTER → 2019-03-13 | Outpatient (CLI) | payer OTHER ==
[~2019-03-13] MED LIST changes: +FERSU300 PO; +FOLI1 PO; +METF500 PO; +METTREX2.5 PO; +Norco 5-325 Ta1 EACH PO; +TRULICITY1.5 MG/0.5 SC; +VITAMIN B122500 MCG PO; +VITAMIN D35000 UNIT SL
[2019-03-13 13:20] LABS: Source, Urine Clean Catch
[2019-03-13 15:38] LABS: Bilirubin, Urine Neg (Neg); Blood, Urine 3+ (Neg); Glucose Qualitative, Urine 4+ (Neg); Ketones, Urine Neg (Neg); Leukocyte Esterase, Urine 3+ (Neg); Nitrite, Urine Pos (Neg); Protein, Urine 3+ (Neg); Specific Gravity, Urine 1.015 (1.003-1.022); Urobilinogen, Urine NORM (Normal)
[2019-03-13 15:50] LABS: Appearance, Urine Turbid (Clear); Color, Urine Yellow (P-Yellow)
[2019-03-13 15:51] LABS: White Blood Cells, Urine TNTC /hpf (0-5)
[2019-03-13 15:52] LABS: Bacteria Mod /hpf; Red Blood Cells, Urine 0-2 /hpf (0-2); Squamous Epithelial Cells Few /hpf (Few)
== END | disposition home or self-care (01) ==
LOC: LAB SHORT 13:19 → LAB 13:19 → EDSTATUS 03-13 09:15 → LAB FUT 03-13 09:15
PROVIDERS: Internal Medicine
DX: R30.0 Dysuria (principal)
CPT/HCPCS: 81001; 87077; 87086; 87186

== ENCOUNTER → 2019-03-30 | Outpatient (CLI) | payer OTHER ==
[2019-03-30 12:44] LABS: Source, Urine Clean Catch
[2019-03-30 15:22] LABS: Bilirubin, Urine Neg (Neg); Blood, Urine 2+ (Neg); Glucose Qualitative, Urine 4+ (Neg); Ketones, Urine Neg (Neg); Leukocyte Esterase, Urine 3+ (Neg); Nitrite, Urine Pos (Neg); Protein, Urine 4+ (Neg); Specific Gravity, Urine 1.015 (1.003-1.022); Urobilinogen, Urine NORM (Normal)
[2019-03-30 15:48] LABS: Appearance, Urine Hazy (Clear); Color, Urine Yellow (P-Yellow)
[2019-03-30 15:49] LABS: Bacteria Mod /hpf; Red Blood Cells, Urine 0-2 /hpf (0-2); Squamous Epithelial Cells Not Seen /hpf (Few); White Blood Cells, Urine TNTC /hpf (0-5)
== END | disposition home or self-care (01) ==
LOC: LAB 12:42 → LAB SHORT 12:42
PROVIDERS: Internal Medicine
DX: R30.0 Dysuria (principal)
CPT/HCPCS: 81001; 87077; 87086; 87186

== ENCOUNTER 2019-04-16 12:56 | Emergency (ER) | payer OTHER ==
[~2019-04-16] VITALS: Ht 175.3 cm; Wt 60.8 kg
[~2019-04-16 12:56] MED LIST changes: -FERSU300 PO; -FOLI1 PO; -METF500 PO; -METTREX2.5 PO; -Norco 5-325 Ta1 EACH PO; -TRULICITY1.5 MG/0.5 SC; -VITAMIN B122500 MCG PO; -VITAMIN D35000 UNIT SL
[2019-04-16 13:22] LABS: BASOPHILS ABSOLUTE AUTO 0.06 K/mm3 (0.00-0.23); BASOPHILS PERCENT AUTO 1 % (0-2); EOSINOPHILS ABSOLUTE AUTO 0.04 K/mm3 (0.00-0.68); EOSINOPHILS PERCENT AUTO 1 % (0-6); Hematocrit 32.6 % (37.0-53.0); Hemoglobin 10.8 g/dL (13.5-17.5); IMMATURE GRAN ABSOLUTE AUTO 0.02 K/mm3 (0.00-0.10); IMMATURE GRAN PERCENT AUTO 0 % (0-1); LYMPHOCYTES ABSOLUTE AUTO 1.05 K/mm3 (0.84-5.20); LYMPHOCYTES PERCENT AUTO 16 % (21-46); MONOCYTES ABSOLUTE AUTO 0.65 K/mm3 (0.16-1.47); MONOCYTES PERCENT AUTO 10 % (4-13); Mean Corpuscular HGB 29.8 pg (26.0-34.0); Mean Corpuscular HGB Conc 33.1 g/dL (31.5-36.5); Mean Corpuscular Volume 90 fL (80-100); Mean Platelet Volume 9.4 fL (9.1-12.4); NEUTROPHILS ABSOLUTE AUTO 4.85 K/mm3 (1.96-9.15); NEUTROPHILS PERCENT AUTO 73 % (41-73); Platelet Count 210 K/mm3 (150-400); RDW Coefficient Variation 14.5 % (11.7-14.2); RDW Standard Deviation 47.7 fL (35.1-46.3); Red Blood Cell Count 3.62 M/mm3 (4.30-5.90); White Blood Cell Count 6.67 K/mm3 (4.00-11.30)
[2019-04-16 13:42] LABS: Alanine Aminotransfer (ALT/SGP 20 U/L (12-78); Albumin, Blood 3.2 g/dL (3.4-5.0); Albumin/Globulin Ratio 0.9 (0.8-1.8); Alk Phos 121 U/L (50-136); Anion Gap 6 mmol/L (6-16); Aspartate Aminotrans (AST/SGOT 11 U/L (12-37); Bilirubin, Total 0.4 mg/dL (0.1-1.0); Blood Urea Nitrogen 26 mg/dL (8-24); Bun/Creatinine Ratio 29.8 (12.0-20.0); CO2, Blood 27 mmol/L (21-32); Chloride, Blood 103 mmol/L (98-108); Creatinine, Blood 0.87 mg/dL (0.60-1.20); Globulin, Blood 3.7 g/dL (2.2-4.0); Glomerular Filtration Rate >60 (60-); Glucose, Blood 420 mg/dL (70-99); Sodium, Blood 136 mmol/L (136-145); Total Protein, Blood 6.9 g/dL (6.4-8.2)
[2019-04-16] MEDS ORDERED: CIPR500 PO (14:53)
[2019-04-16] MEDS ORDERED: METF500 PO (14:56)
[2019-04-16] MEDS ORDERED: METTREX2.5 PO (14:57)
[2019-04-16] MEDS ORDERED: PANT40 PO (14:57)
[2019-05-20] MEDS ORDERED: TRULICITY1.5 MG/0.5 SC (14:19)
[2019-05-20] MEDS ORDERED: VITAMIN D35000 UNIT SL (14:20)
[2019-05-20] MEDS ORDERED: VITAMIN B122500 MCG PO (14:29)
[2019-05-20] MEDS ORDERED: FOLI1 PO (14:31)
[2019-05-20] MEDS ORDERED: FERSU300 PO (14:31)
== END 2019-04-16 15:55 | disposition home or self-care (01) ==
LOC: ER 12:56
PROVIDERS: Physician Assistant
DX: K92.2 Gastrointestinal hemorrhage, unspecified (principal); D64.9 Anemia, unspecified; Z88.0 Allergy status to penicillin; Z88.1 Allergy status to other antibiotic agents; Z79.82 Long term (current) use of aspirin; Z79.4 Long term (current) use of insulin; Z79.899 Other long term (current) drug therapy; I10 Essential (primary) hypertension; E11.9 Type 2 diabetes mellitus without complications; I48.91 Unspecified atrial fibrillation; Z86.73 Personal history of transient ischemic attack (TIA), and cerebral infarction without residual deficits
CPT/HCPCS: 36415; 80053; 82272; 85025; 86850; 86900; 86901; 99283

== ENCOUNTER 2019-04-19 10:49 | Emergency (ER) | payer OTHER ==
[~2019-04-19] VITALS: Ht 177.8 cm; Wt 72.6 kg
[~2019-04-19 10:49] MED LIST changes: +METF500 PO; +METTREX2.5 PO
[2019-04-19 11:17] LABS: BASOPHILS ABSOLUTE AUTO 0.06 K/mm3 (0.00-0.23); BASOPHILS PERCENT AUTO 1 % (0-2); EOSINOPHILS ABSOLUTE AUTO 0.06 K/mm3 (0.00-0.68); EOSINOPHILS PERCENT AUTO 1 % (0-6); Hematocrit 32.7 % (37.0-53.0); IMMATURE GRAN ABSOLUTE AUTO 0.03 K/mm3 (0.00-0.10); IMMATURE GRAN PERCENT AUTO 0 % (0-1); LYMPHOCYTES ABSOLUTE AUTO 0.91 K/mm3 (0.84-5.20); LYMPHOCYTES PERCENT AUTO 13 % (21-46); MONOCYTES ABSOLUTE AUTO 0.69 K/mm3 (0.16-1.47); MONOCYTES PERCENT AUTO 10 % (4-13); Mean Corpuscular HGB 30.1 pg (26.0-34.0); Mean Corpuscular HGB Conc 33.6 g/dL (31.5-36.5); Mean Corpuscular Volume 90 fL (80-100); Mean Platelet Volume 9.5 fL (9.1-12.4); NEUTROPHILS ABSOLUTE AUTO 5.47 K/mm3 (1.96-9.15); NEUTROPHILS PERCENT AUTO 76 % (41-73); Platelet Count 190 K/mm3 (150-400); RDW Coefficient Variation 14.3 % (11.7-14.2); RDW Standard Deviation 46.7 fL (35.1-46.3); Red Blood Cell Count 3.65 M/mm3 (4.30-5.90); White Blood Cell Count 7.22 K/mm3 (4.00-11.30)
[2019-04-19 11:35] LABS: Alanine Aminotransfer (ALT/SGP 21 U/L (12-78); Albumin, Blood 3.1 g/dL (3.4-5.0); Albumin/Globulin Ratio 0.9 (0.8-1.8); Alk Phos 121 U/L (50-136); Anion Gap 8 mmol/L (6-16); Aspartate Aminotrans (AST/SGOT 13 U/L (12-37); Bilirubin, Total 0.5 mg/dL (0.1-1.0); Blood Urea Nitrogen 26 mg/dL (8-24); Bun/Creatinine Ratio 30.6 (12.0-20.0); CO2, Blood 26 mmol/L (21-32); Calcium, Blood 8.7 mg/dL (8.5-10.1); Chloride, Blood 105 mmol/L (98-108); Creatinine, Blood 0.85 mg/dL (0.60-1.20); Globulin, Blood 3.6 g/dL (2.2-4.0); Glomerular Filtration Rate >60 (60-); Glucose, Blood 294 mg/dL (70-99); Potassium, Blood 4.2 mmol/L (3.5-5.5); Sodium, Blood 139 mmol/L (136-145); Total Protein, Blood 6.7 g/dL (6.4-8.2)
[2019-04-19] MEDS ORDERED: CIPR500 PO (11:51)
[2019-04-19] MEDS ORDERED: Norco 5-325 Ta1 EACH PO (13:05)
[2019-05-20] MEDS ORDERED: TRULICITY1.5 MG/0.5 SC (14:19)
[2019-05-20] MEDS ORDERED: VITAMIN D35000 UNIT SL (14:20)
[2019-05-20] MEDS ORDERED: VITAMIN B122500 MCG PO (14:29)
[2019-05-20] MEDS ORDERED: FOLI1 PO (14:31)
[2019-05-20] MEDS ORDERED: FERSU300 PO (14:31)
== END 2019-04-19 13:32 | disposition home or self-care (01) ==
LOC: ER 10:49
PROVIDERS: Internal Medicine
DX: S20.212A Contusion of left front wall of thorax, initial encounter (principal); S00.93XA Contusion of unspecified part of head, initial encounter; S80.12XA Contusion of left lower leg, initial encounter; E11.9 Type 2 diabetes mellitus without complications; I10 Essential (primary) hypertension; I48.91 Unspecified atrial fibrillation; Z86.73 Personal history of transient ischemic attack (TIA), and cerebral infarction without residual deficits; Z87.891 Personal history of nicotine dependence; Z88.0 Allergy status to penicillin; Z88.1 Allergy status to other antibiotic agents; Z79.899 Other long term (current) drug therapy; Z79.01 Long term (current) use of anticoagulants; Z79.4 Long term (current) use of insulin; Z79.82 Long term (current) use of aspirin; W06.XXXA Fall from bed, initial encounter
CPT/HCPCS: 36415; 70450; 71101; 72125; 80053; 85025; 93005; 93010; 96374; 99285-25; A9270-GY; J2405

== ENCOUNTER → 2019-04-30 | Outpatient (CLI) | payer OTHER ==
[~2019-04-30] MED LIST changes: +FERSU300 PO; +FOLI1 PO; +Norco 5-325 Ta1 EACH PO; +TRULICITY1.5 MG/0.5 SC; +VITAMIN B122500 MCG PO; +VITAMIN D35000 UNIT SL
[2019-04-30 12:04] LABS: Source, Urine Clean Catch
[2019-04-30 13:52] LABS: Bilirubin, Urine Neg (Neg); Blood, Urine 3+ (Neg); Glucose Qualitative, Urine 4+ (Neg); Ketones, Urine Neg (Neg); Leukocyte Esterase, Urine 2+ (Neg); Nitrite, Urine Neg (Neg); Protein, Urine 3+ (Neg); Urobilinogen, Urine NORM (Normal)
[2019-04-30 14:26] LABS: Appearance, Urine Hazy (Clear); Color, Urine Yellow (P-Yellow)
[2019-04-30 14:27] LABS: Bacteria Few /hpf; Squamous Epithelial Cells Few /hpf (Few); White Blood Cells, Urine TNTC /hpf (0-5)
== END | disposition home or self-care (01) ==
LOC: LAB 12:03 → LAB SHORT 12:03 → LAB FUT 04-15 15:05 → EDSTATUS 04-15 15:05
PROVIDERS: Internal Medicine
DX: R30.0 Dysuria (principal); Z87.440 Personal history of urinary (tract) infections
CPT/HCPCS: 81001; 87077; 87086; 87147; 87186

== ENCOUNTER 2019-05-05 00:22 | Day surgery (SDC) | payer OTHER ==
[~2019-05-05 00:22] MED LIST changes: -FERSU300 PO; -FOLI1 PO; -TRULICITY1.5 MG/0.5 SC; -VITAMIN B122500 MCG PO; -VITAMIN D35000 UNIT SL
[2019-05-20] MEDS ORDERED: TRULICITY1.5 MG/0.5 SC (14:19)
[2019-05-20] MEDS ORDERED: VITAMIN D35000 UNIT SL (14:20)
[2019-05-20] MEDS ORDERED: VITAMIN B122500 MCG PO (14:29)
[2019-05-20] MEDS ORDERED: FOLI1 PO (14:31)
[2019-05-20] MEDS ORDERED: FERSU300 PO (14:31)
== END 2019-05-05 22:49 | disposition home or self-care (01) ==
LOC: WOUND 00:22
DX: S81.802A Unspecified open wound, left lower leg, initial encounter (principal); E11.622 Type 2 diabetes mellitus with other skin ulcer; L97.829 Non-pressure chronic ulcer of other part of left lower leg with unspecified severity; E11.40 Type 2 diabetes mellitus with diabetic neuropathy, unspecified; I10 Essential (primary) hypertension; I48.91 Unspecified atrial fibrillation; Z88.1 Allergy status to other antibiotic agents; Z87.891 Personal history of nicotine dependence
CPT/HCPCS: G0463

== ENCOUNTER → 2019-05-06 | Outpatient (CLI) | payer OTHER ==
[~2019-05-06] MED LIST changes: +FERSU300 PO; +FOLI1 PO; +TRULICITY1.5 MG/0.5 SC; +VITAMIN B122500 MCG PO; +VITAMIN D35000 UNIT SL
[2019-05-06 08:31] LABS: Source, Urine Clean Catch
[2019-05-06 10:27] LABS: Bilirubin, Urine Neg (Neg); Blood, Urine 2+ (Neg); Glucose Qualitative, Urine 4+ (Neg); Ketones, Urine Neg (Neg); Leukocyte Esterase, Urine Neg (Neg); Nitrite, Urine Neg (Neg); Protein, Urine 4+ (Neg); Specific Gravity, Urine 1.015 (1.003-1.022); Urobilinogen, Urine NORM (Normal)
[2019-05-06 10:44] LABS: Appearance, Urine Clear (Clear); Color, Urine Yellow (P-Yellow)
[2019-05-06 10:45] LABS: Bacteria Not Seen /hpf; White Blood Cells, Urine Not Seen /hpf (0-5)
[2019-05-06 10:46] LABS: Squamous Epithelial Cells Few /hpf (Few)
== END | disposition home or self-care (01) ==
LOC: LAB SHORT 08:29 → LAB 08:29
PROVIDERS: Internal Medicine
DX: R30.0 Dysuria (principal)
CPT/HCPCS: 81001

== ENCOUNTER 2019-05-11 12:56 | Day surgery (SDC) | payer OTHER ==
[~2019-05-11 12:56] MED LIST changes: -FERSU300 PO; -FOLI1 PO; -TRULICITY1.5 MG/0.5 SC; -VITAMIN B122500 MCG PO; -VITAMIN D35000 UNIT SL
[2019-05-20] MEDS ORDERED: TRULICITY1.5 MG/0.5 SC (14:19)
[2019-05-20] MEDS ORDERED: VITAMIN D35000 UNIT SL (14:20)
[2019-05-20] MEDS ORDERED: VITAMIN B122500 MCG PO (14:29)
[2019-05-20] MEDS ORDERED: FOLI1 PO (14:31)
[2019-05-20] MEDS ORDERED: FERSU300 PO (14:31)
== END 2019-05-11 23:09 | disposition home or self-care (01) ==
LOC: WOUND 12:56
DX: S81.802A Unspecified open wound, left lower leg, initial encounter (principal); E11.622 Type 2 diabetes mellitus with other skin ulcer; L97.522 Non-pressure chronic ulcer of other part of left foot with fat layer exposed; E11.40 Type 2 diabetes mellitus with diabetic neuropathy, unspecified; I10 Essential (primary) hypertension; I48.91 Unspecified atrial fibrillation; W06.XXXA Fall from bed, initial encounter

== ENCOUNTER 2019-05-19 14:29 | Emergency (ER) | payer OTHER ==
[~2019-05-19] VITALS: Ht 165.1 cm; Wt 72.1 kg
[2019-05-19 15:14] LABS: BASOPHILS ABSOLUTE AUTO 0.04 K/mm3 (0.00-0.23); BASOPHILS PERCENT AUTO 1 % (0-2); EOSINOPHILS ABSOLUTE AUTO 0.09 K/mm3 (0.00-0.68); EOSINOPHILS PERCENT AUTO 2 % (0-6); Hemoglobin 10.8 g/dL (13.5-17.5); IMMATURE GRAN ABSOLUTE AUTO 0.03 K/mm3 (0.00-0.10); IMMATURE GRAN PERCENT AUTO 1 % (0-1); LYMPHOCYTES ABSOLUTE AUTO 1.18 K/mm3 (0.84-5.20); LYMPHOCYTES PERCENT AUTO 21 % (21-46); MONOCYTES ABSOLUTE AUTO 0.52 K/mm3 (0.16-1.47); MONOCYTES PERCENT AUTO 9 % (4-13); Mean Corpuscular HGB 29.5 pg (26.0-34.0); Mean Corpuscular HGB Conc 32.7 g/dL (31.5-36.5); Mean Corpuscular Volume 90 fL (80-100); Mean Platelet Volume 9.2 fL (9.1-12.4); NEUTROPHILS ABSOLUTE AUTO 3.85 K/mm3 (1.96-9.15); NEUTROPHILS PERCENT AUTO 67 % (41-73); Platelet Count 226 K/mm3 (150-400); RDW Coefficient Variation 14.2 % (11.7-14.2); RDW Standard Deviation 45.9 fL (35.1-46.3); Red Blood Cell Count 3.66 M/mm3 (4.30-5.90); White Blood Cell Count 5.71 K/mm3 (4.00-11.30)
[2019-05-19 15:51] LABS: Alanine Aminotransfer (ALT/SGP 25 U/L (12-78); Albumin, Blood 3.2 g/dL (3.4-5.0); Albumin/Globulin Ratio 0.9 (0.8-1.8); Alk Phos 123 U/L (50-136); Anion Gap 4 mmol/L (6-16); Aspartate Aminotrans (AST/SGOT 17 U/L (12-37); Bilirubin, Total 0.4 mg/dL (0.1-1.0); Blood Urea Nitrogen 16 mg/dL (8-24); Bun/Creatinine Ratio 18.3 (12.0-20.0); CO2, Blood 28 mmol/L (21-32); Calcium, Blood 9.1 mg/dL (8.5-10.1); Chloride, Blood 102 mmol/L (98-108); Creatinine, Blood 0.87 mg/dL (0.60-1.20); Globulin, Blood 3.7 g/dL (2.2-4.0); Glomerular Filtration Rate >60 (60-); Glucose, Blood 238 mg/dL (70-99); Potassium, Blood 3.8 mmol/L (3.5-5.5); Sodium, Blood 134 mmol/L (136-145); Total Protein, Blood 6.9 g/dL (6.4-8.2)
[2019-05-19 17:26] LABS: Source, Urine Voided
[2019-05-19 17:46] LABS: Bilirubin, Urine Neg (Neg); Blood, Urine 2+ (Neg); Glucose Qualitative, Urine 3+ (Neg); Ketones, Urine Neg (Neg); Leukocyte Esterase, Urine Neg (Neg); Nitrite, Urine Neg (Neg); Protein, Urine 3+ (Neg); Urobilinogen, Urine NORM (Normal)
[2019-05-19 18:09] LABS: Appearance, Urine Clear (Clear); Color, Urine Yellow (P-Yellow)
[2019-05-19 18:10] LABS: White Blood Cells, Urine 0-2 /hpf (0-5)
[2019-05-19 18:11] LABS: Bacteria Rare /hpf; Squamous Epithelial Cells Rare /hpf (Few)
[2019-05-20] MEDS ORDERED: TRULICITY1.5 MG/0.5 SC (14:19)
[2019-05-20] MEDS ORDERED: VITAMIN D35000 UNIT SL (14:20)
[2019-05-20] MEDS ORDERED: VITAMIN B122500 MCG PO (14:29)
[2019-05-20] MEDS ORDERED: FOLI1 PO (14:31)
[2019-05-20] MEDS ORDERED: FERSU300 PO (14:31)
== END 2019-05-19 18:50 | disposition home or self-care (01) ==
LOC: ER 14:29
PROVIDERS: Emergency Medicine; Physician Assistant
DX: S81.802D Unspecified open wound, left lower leg, subsequent encounter (principal); W06.XXXD Fall from bed, subsequent encounter; Z88.0 Allergy status to penicillin; Z88.1 Allergy status to other antibiotic agents; Z79.899 Other long term (current) drug therapy; Z79.4 Long term (current) use of insulin; Z79.82 Long term (current) use of aspirin; I10 Essential (primary) hypertension; Z86.73 Personal history of transient ischemic attack (TIA), and cerebral infarction without residual deficits; E11.9 Type 2 diabetes mellitus without complications; I48.91 Unspecified atrial fibrillation
CPT/HCPCS: 36415; 71046; 80053; 81001; 85025; 99283-25

== ENCOUNTER 2019-05-25 07:19 | Day surgery (SDC) | payer OTHER ==
[~2019-05-25] VITALS: Ht 165.1 cm; Wt 65.0 kg
[~2019-05-25 07:19] MED LIST changes: +FERSU300 PO; +FOLI1 PO; +TRULICITY1.5 MG/0.5 SC; +VITAMIN B122500 MCG PO; +VITAMIN D35000 UNIT SL
--- NOTE | 2019-05-25 08:53 | NUR ---
History, Chart, Medications and Allergies reviewed before start of procedure. Lungs clear T/O to Auscultation. Patient confirms NPO status and agrees with scheduled surgery. Pre-Op teaching done. Pt verbalizes understanding. Patient States Post-Procedure ride home has been arranged. Patient reports completing Chlorhexadine shower X2 prior to admission to hospital.
--- NOTE | 2019-05-25 12:48 | NUR ---
Discharge instructions reviewed with patient. Patient verbalizes understanding. Copy given to patient to take home. Discharged via wheelchair to private car for ride home WITH DAUGHTER. PT RETURNED TO BASELINE ACTIVITY POST OPERATIVELY.
--- NOTE | 2019-05-26 13:46 | NUR ---
05/26/19 1346 Isis Griffin VERIFICATIONS: EDIT CHART.
== END 2019-05-25 22:53 | disposition home or self-care (01) ==
LOC: ORSCMMR 07:19 → ORD 09:00 → ORSCMMR 22:53
PROVIDERS: Surgery
PROC: 0JBP0ZZ Excision of Left Lower Leg Subcutaneous Tissue and Fascia, Open Approach (ICD-10-PCS; principal; 2019-05-25 09:00)
DX: S81.802A Unspecified open wound, left lower leg, initial encounter (principal); I10 Essential (primary) hypertension; I48.91 Unspecified atrial fibrillation; Z79.01 Long term (current) use of anticoagulants; E11.9 Type 2 diabetes mellitus without complications; Z79.4 Long term (current) use of insulin; E78.5 Hyperlipidemia, unspecified; G47.33 Obstructive sleep apnea (adult) (pediatric); Z86.73 Personal history of transient ischemic attack (TIA), and cerebral infarction without residual deficits; Z79.899 Other long term (current) drug therapy
CPT/HCPCS: 82947; 87071; 87075; 87077; 87147; 87186; 87205; A9270-GY; J1815; J2704; J2710; J3010; J7120

== ENCOUNTER 2019-06-01 00:28 | Day surgery (SDC) | payer OTHER | END 2019-06-01 23:24 | disposition home or self-care (01) | LOC: WOUND 00:28 | DX: S81.802A Unspecified open wound, left lower leg, initial encounter (principal); E11.40 Type 2 diabetes mellitus with diabetic neuropathy, unspecified; I10 Essential (primary) hypertension; E05.90 Thyrotoxicosis, unspecified without thyrotoxic crisis or storm; E78.5 Hyperlipidemia, unspecified; G47.33 Obstructive sleep apnea (adult) (pediatric); Z87.891 Personal history of nicotine dependence; Z95.2 Presence of prosthetic heart valve ==

== ENCOUNTER 2019-06-08 12:57 | Day surgery (SDC) | payer OTHER | END 2019-06-08 22:56 | disposition home or self-care (01) | LOC: WOUND 12:57 | DX: E11.622 Type 2 diabetes mellitus with other skin ulcer (principal); L97.822 Non-pressure chronic ulcer of other part of left lower leg with fat layer exposed; I10 Essential (primary) hypertension; E11.40 Type 2 diabetes mellitus with diabetic neuropathy, unspecified; E05.90 Thyrotoxicosis, unspecified without thyrotoxic crisis or storm; G47.33 Obstructive sleep apnea (adult) (pediatric); Z79.899 Other long term (current) drug therapy; Z79.4 Long term (current) use of insulin ==

== ENCOUNTER 2019-06-26 00:22 | Day surgery (SDC) | payer OTHER | END 2019-06-26 23:15 | disposition home or self-care (01) | LOC: WOUND 00:22 | DX: S81.802A Unspecified open wound, left lower leg, initial encounter (principal); E11.52 Type 2 diabetes mellitus with diabetic peripheral angiopathy with gangrene; I96 Gangrene, not elsewhere classified; E11.40 Type 2 diabetes mellitus with diabetic neuropathy, unspecified; M06.9 Rheumatoid arthritis, unspecified; I10 Essential (primary) hypertension; E03.9 Hypothyroidism, unspecified; E78.5 Hyperlipidemia, unspecified; I48.91 Unspecified atrial fibrillation; F03.90 Unspecified dementia, unspecified severity, without behavioral disturbance, psychotic disturbance, mood disturbance, and anxiety; G47.33 Obstructive sleep apnea (adult) (pediatric); Z88.0 Allergy status to penicillin; Z88.1 Allergy status to other antibiotic agents; Z88.2 Allergy status to sulfonamides; Z88.8 Allergy status to other drugs, medicaments and biological substances; Z79.01 Long term (current) use of anticoagulants; Z95.2 Presence of prosthetic heart valve; Z79.4 Long term (current) use of insulin; Z79.899 Other long term (current) drug therapy; W06.XXXA Fall from bed, initial encounter | CPT/HCPCS: G0463 ==

== ENCOUNTER 2019-06-29 13:06 | Day surgery (SDC) | payer OTHER | END 2019-06-29 22:43 | disposition home or self-care (01) | LOC: WOUND 13:06 | DX: E11.622 Type 2 diabetes mellitus with other skin ulcer (principal); L97.825 Non-pressure chronic ulcer of other part of left lower leg with muscle involvement without evidence of necrosis; I10 Essential (primary) hypertension; E78.5 Hyperlipidemia, unspecified; E11.40 Type 2 diabetes mellitus with diabetic neuropathy, unspecified; G47.33 Obstructive sleep apnea (adult) (pediatric); Z79.899 Other long term (current) drug therapy; Z79.4 Long term (current) use of insulin; Z79.01 Long term (current) use of anticoagulants | CPT/HCPCS: Q4196 ==

== ENCOUNTER 2019-07-06 00:18 | Day surgery (SDC) | payer OTHER | END 2019-07-06 22:56 | disposition home or self-care (01) | LOC: WOUND 00:18 | DX: S81.802A Unspecified open wound, left lower leg, initial encounter (principal); E11.622 Type 2 diabetes mellitus with other skin ulcer; I96 Gangrene, not elsewhere classified; L97.822 Non-pressure chronic ulcer of other part of left lower leg with fat layer exposed; E11.52 Type 2 diabetes mellitus with diabetic peripheral angiopathy with gangrene; E11.40 Type 2 diabetes mellitus with diabetic neuropathy, unspecified; I10 Essential (primary) hypertension; E03.9 Hypothyroidism, unspecified; E78.5 Hyperlipidemia, unspecified; I48.91 Unspecified atrial fibrillation; F03.90 Unspecified dementia, unspecified severity, without behavioral disturbance, psychotic disturbance, mood disturbance, and anxiety; L97.825 Non-pressure chronic ulcer of other part of left lower leg with muscle involvement without evidence of necrosis; M06.9 Rheumatoid arthritis, unspecified; Z95.2 Presence of prosthetic heart valve; Z79.01 Long term (current) use of anticoagulants; Z79.4 Long term (current) use of insulin; Z79.899 Other long term (current) drug therapy; Z88.0 Allergy status to penicillin; Z88.1 Allergy status to other antibiotic agents; Z88.2 Allergy status to sulfonamides; Z88.8 Allergy status to other drugs, medicaments and biological substances; X58.XXXA Exposure to other specified factors, initial encounter | CPT/HCPCS: Q4196 ==

== ENCOUNTER 2019-07-13 13:03 | Day surgery (SDC) | payer OTHER | END 2019-07-13 23:14 | disposition home or self-care (01) | LOC: WOUND 13:03 | DX: E11.622 Type 2 diabetes mellitus with other skin ulcer (principal); L97.825 Non-pressure chronic ulcer of other part of left lower leg with muscle involvement without evidence of necrosis; E11.40 Type 2 diabetes mellitus with diabetic neuropathy, unspecified; I10 Essential (primary) hypertension; E78.5 Hyperlipidemia, unspecified; G47.33 Obstructive sleep apnea (adult) (pediatric); Z79.4 Long term (current) use of insulin; Z79.899 Other long term (current) drug therapy | CPT/HCPCS: Q4196 ==

== ENCOUNTER 2019-07-22 11:01 | Day surgery (SDC) | payer OTHER | END 2019-07-22 23:10 | disposition home or self-care (01) | LOC: WOUND 11:01 | DX: S81.802A Unspecified open wound, left lower leg, initial encounter (principal); E11.622 Type 2 diabetes mellitus with other skin ulcer; L97.822 Non-pressure chronic ulcer of other part of left lower leg with fat layer exposed; E11.52 Type 2 diabetes mellitus with diabetic peripheral angiopathy with gangrene; I96 Gangrene, not elsewhere classified; I87.2 Venous insufficiency (chronic) (peripheral); E11.40 Type 2 diabetes mellitus with diabetic neuropathy, unspecified; I10 Essential (primary) hypertension; E21.3 Hyperparathyroidism, unspecified; E78.5 Hyperlipidemia, unspecified; I48.91 Unspecified atrial fibrillation; F03.90 Unspecified dementia, unspecified severity, without behavioral disturbance, psychotic disturbance, mood disturbance, and anxiety; G47.33 Obstructive sleep apnea (adult) (pediatric); M06.9 Rheumatoid arthritis, unspecified; Z95.2 Presence of prosthetic heart valve; Z79.01 Long term (current) use of anticoagulants; Z79.4 Long term (current) use of insulin; Z79.899 Other long term (current) drug therapy; Z88.0 Allergy status to penicillin; Z88.1 Allergy status to other antibiotic agents; Z88.2 Allergy status to sulfonamides; Z88.8 Allergy status to other drugs, medicaments and biological substances; X58.XXXA Exposure to other specified factors, initial encounter | CPT/HCPCS: Q4196 ==

== ENCOUNTER 2019-07-27 13:28 | Day surgery (SDC) | payer OTHER | END 2019-07-27 22:43 | disposition home or self-care (01) | LOC: WOUND 13:28 | DX: E11.622 Type 2 diabetes mellitus with other skin ulcer (principal); L97.825 Non-pressure chronic ulcer of other part of left lower leg with muscle involvement without evidence of necrosis; E11.40 Type 2 diabetes mellitus with diabetic neuropathy, unspecified; I10 Essential (primary) hypertension; E78.5 Hyperlipidemia, unspecified; G47.33 Obstructive sleep apnea (adult) (pediatric); E05.90 Thyrotoxicosis, unspecified without thyrotoxic crisis or storm; I87.2 Venous insufficiency (chronic) (peripheral); G20 Parkinson's disease; F02.80 Dementia in other diseases classified elsewhere, unspecified severity, without behavioral disturbance, psychotic disturbance, mood disturbance, and anxiety; Z79.899 Other long term (current) drug therapy; Z79.4 Long term (current) use of insulin; Z79.01 Long term (current) use of anticoagulants | CPT/HCPCS: Q4133 ==

== ENCOUNTER 2019-08-03 12:58 | Day surgery (SDC) | payer OTHER | END 2019-08-03 22:48 | disposition home or self-care (01) | LOC: WOUND 12:58 | DX: E11.622 Type 2 diabetes mellitus with other skin ulcer (principal); L97.825 Non-pressure chronic ulcer of other part of left lower leg with muscle involvement without evidence of necrosis; I87.2 Venous insufficiency (chronic) (peripheral); E11.40 Type 2 diabetes mellitus with diabetic neuropathy, unspecified; I10 Essential (primary) hypertension; E03.9 Hypothyroidism, unspecified; E78.5 Hyperlipidemia, unspecified; I48.91 Unspecified atrial fibrillation; F03.90 Unspecified dementia, unspecified severity, without behavioral disturbance, psychotic disturbance, mood disturbance, and anxiety; G47.33 Obstructive sleep apnea (adult) (pediatric); Z88.0 Allergy status to penicillin; Z88.1 Allergy status to other antibiotic agents; Z88.2 Allergy status to sulfonamides; Z88.8 Allergy status to other drugs, medicaments and biological substances; Z95.2 Presence of prosthetic heart valve; Z79.01 Long term (current) use of anticoagulants; Z79.4 Long term (current) use of insulin; Z79.899 Other long term (current) drug therapy | CPT/HCPCS: Q4133 ==

== ENCOUNTER 2019-08-10 13:23 | Day surgery (SDC) | payer OTHER | END 2019-08-10 22:56 | disposition home or self-care (01) | LOC: WOUND 13:23 | DX: E11.622 Type 2 diabetes mellitus with other skin ulcer (principal); E11.40 Type 2 diabetes mellitus with diabetic neuropathy, unspecified; L97.822 Non-pressure chronic ulcer of other part of left lower leg with fat layer exposed; E78.5 Hyperlipidemia, unspecified; G47.33 Obstructive sleep apnea (adult) (pediatric); E05.90 Thyrotoxicosis, unspecified without thyrotoxic crisis or storm; I87.2 Venous insufficiency (chronic) (peripheral); Z79.899 Other long term (current) drug therapy; Z79.4 Long term (current) use of insulin; Z79.01 Long term (current) use of anticoagulants | CPT/HCPCS: Q4133 ==

== ENCOUNTER 2019-08-17 12:59 | Day surgery (SDC) | payer OTHER | END 2019-08-17 23:02 | disposition home or self-care (01) | LOC: WOUND 12:59 | DX: E11.622 Type 2 diabetes mellitus with other skin ulcer (principal); L97.825 Non-pressure chronic ulcer of other part of left lower leg with muscle involvement without evidence of necrosis; I87.2 Venous insufficiency (chronic) (peripheral); E11.40 Type 2 diabetes mellitus with diabetic neuropathy, unspecified; I10 Essential (primary) hypertension; E78.5 Hyperlipidemia, unspecified; G47.33 Obstructive sleep apnea (adult) (pediatric); E05.90 Thyrotoxicosis, unspecified without thyrotoxic crisis or storm; Z79.4 Long term (current) use of insulin; Z79.899 Other long term (current) drug therapy; Z79.01 Long term (current) use of anticoagulants | CPT/HCPCS: G0463 ==

== ENCOUNTER 2019-08-24 12:51 | Day surgery (SDC) | payer OTHER | END 2019-08-24 22:43 | disposition home or self-care (01) | LOC: WOUND 12:51 | DX: S81.802A Unspecified open wound, left lower leg, initial encounter (principal); E11.52 Type 2 diabetes mellitus with diabetic peripheral angiopathy with gangrene; I96 Gangrene, not elsewhere classified; I87.2 Venous insufficiency (chronic) (peripheral); E11.40 Type 2 diabetes mellitus with diabetic neuropathy, unspecified; I10 Essential (primary) hypertension; E05.90 Thyrotoxicosis, unspecified without thyrotoxic crisis or storm; E78.5 Hyperlipidemia, unspecified; I35.0 Nonrheumatic aortic (valve) stenosis; I48.91 Unspecified atrial fibrillation; F03.90 Unspecified dementia, unspecified severity, without behavioral disturbance, psychotic disturbance, mood disturbance, and anxiety; G47.33 Obstructive sleep apnea (adult) (pediatric); J32.9 Chronic sinusitis, unspecified; M06.9 Rheumatoid arthritis, unspecified; Z95.2 Presence of prosthetic heart valve; Z88.0 Allergy status to penicillin; Z88.1 Allergy status to other antibiotic agents; Z88.2 Allergy status to sulfonamides; Z88.8 Allergy status to other drugs, medicaments and biological substances; Z79.4 Long term (current) use of insulin; Z79.01 Long term (current) use of anticoagulants; Z79.899 Other long term (current) drug therapy; X58.XXXA Exposure to other specified factors, initial encounter | CPT/HCPCS: Q4133 ==

== ENCOUNTER 2019-08-31 00:19 | Day surgery (SDC) | payer OTHER | END 2019-08-31 22:43 | disposition home or self-care (01) | LOC: WOUND 00:19 | DX: S81.802A Unspecified open wound, left lower leg, initial encounter (principal); E11.52 Type 2 diabetes mellitus with diabetic peripheral angiopathy with gangrene; I96 Gangrene, not elsewhere classified; E11.622 Type 2 diabetes mellitus with other skin ulcer; L97.822 Non-pressure chronic ulcer of other part of left lower leg with fat layer exposed; I87.2 Venous insufficiency (chronic) (peripheral); E11.40 Type 2 diabetes mellitus with diabetic neuropathy, unspecified; I10 Essential (primary) hypertension; E05.90 Thyrotoxicosis, unspecified without thyrotoxic crisis or storm; E78.5 Hyperlipidemia, unspecified; I48.91 Unspecified atrial fibrillation; F03.90 Unspecified dementia, unspecified severity, without behavioral disturbance, psychotic disturbance, mood disturbance, and anxiety; G47.33 Obstructive sleep apnea (adult) (pediatric); J32.9 Chronic sinusitis, unspecified; M06.9 Rheumatoid arthritis, unspecified; Z88.0 Allergy status to penicillin; Z88.1 Allergy status to other antibiotic agents; Z88.2 Allergy status to sulfonamides; Z88.8 Allergy status to other drugs, medicaments and biological substances; Z79.4 Long term (current) use of insulin; Z79.899 Other long term (current) drug therapy; X58.XXXA Exposure to other specified factors, initial encounter | CPT/HCPCS: G0463 ==

== ENCOUNTER 2019-09-14 13:00 | Day surgery (SDC) | payer OTHER | END 2019-10-01 23:11 | disposition home or self-care (01) | LOC: WOUND 13:00 | DX: E11.622 Type 2 diabetes mellitus with other skin ulcer (principal); E11.40 Type 2 diabetes mellitus with diabetic neuropathy, unspecified; L97.825 Non-pressure chronic ulcer of other part of left lower leg with muscle involvement without evidence of necrosis; I87.2 Venous insufficiency (chronic) (peripheral); I10 Essential (primary) hypertension; E78.5 Hyperlipidemia, unspecified; G47.33 Obstructive sleep apnea (adult) (pediatric); Z79.899 Other long term (current) drug therapy; Z79.4 Long term (current) use of insulin ==

== ENCOUNTER → 2019-09-18 | Outpatient (CLI) | payer OTHER | LOC: LAB SHORT 15:58 → LAB 15:58 | DX: L08.9 Local infection of the skin and subcutaneous tissue, unspecified (principal); L20.84 Intrinsic (allergic) eczema; L70.8 Other acne | CPT/HCPCS: 87070; 87077; 87186; 87205 ==

== ENCOUNTER 2019-09-21 00:17 | Day surgery (SDC) | payer OTHER | END 2019-09-21 22:45 | disposition home or self-care (01) | LOC: WOUND 00:17 | DX: E11.622 Type 2 diabetes mellitus with other skin ulcer (principal); E11.40 Type 2 diabetes mellitus with diabetic neuropathy, unspecified; L97.825 Non-pressure chronic ulcer of other part of left lower leg with muscle involvement without evidence of necrosis; I10 Essential (primary) hypertension; E78.5 Hyperlipidemia, unspecified; G47.33 Obstructive sleep apnea (adult) (pediatric); I87.2 Venous insufficiency (chronic) (peripheral); Z79.899 Other long term (current) drug therapy; Z79.01 Long term (current) use of anticoagulants; Z79.4 Long term (current) use of insulin | CPT/HCPCS: G0463 ==

== ENCOUNTER 2019-10-06 00:08 | Emergency (ER) | payer OTHER ==
[~2019-10-06] VITALS: Ht 167.6 cm; Wt 69.0 kg
[2019-10-06] MEDS ORDERED: Norco 5-325 Ta1 EACH PO (00:22)
[2019-10-06] MEDS ORDERED: ONDA4ODT MM (00:22)
== END 2019-10-06 00:39 | disposition home or self-care (01) ==
LOC: ER 00:08
DX: S43.101A Unspecified dislocation of right acromioclavicular joint, initial encounter (principal); W19.XXXA Unspecified fall, initial encounter; E11.9 Type 2 diabetes mellitus without complications; I10 Essential (primary) hypertension; Z86.73 Personal history of transient ischemic attack (TIA), and cerebral infarction without residual deficits; I48.91 Unspecified atrial fibrillation; Z87.891 Personal history of nicotine dependence
CPT/HCPCS: 73030; A9270-GY

== ENCOUNTER 2020-04-15 23:35 | Inpatient (IN) | payer OTHER ==
[~2020-04-15] VITALS: Ht 165.1 cm; Wt 65.2 kg
[~2020-04-15 23:35] MED LIST changes: +BASAGLAR K100 UNIT/1 SC; +BIOTIN10000 MC1 PO; +DONEPEZIL HCL10 M1 PO; +HUMALOG100 UNIT/1 SC; -LOSA50 PO; +LOSARTAN POTAS100 M1 PO; +NOVOLOG FL100 UNIT/3 SC; +ONDA4ODT MM; -PRAV20 PO; +Pravachol40 MG PO; +Q-Tussin100 MG/5 M PO; +THERA1 EACH PO; +TRULICITY1.5 MG/0.1 SC; -TRULICITY1.5 MG/0.5 SC; +VITAMIN D31000 UNI1 PO; -VITAMIN D35000 UNIT SL
[2020-04-16 00:20] LABS: BASOPHILS ABSOLUTE AUTO 0.06 K/mm3 (0.00-0.23); BASOPHILS PERCENT AUTO 1 % (0-2); EOSINOPHILS ABSOLUTE AUTO 0.16 K/mm3 (0.00-0.68); EOSINOPHILS PERCENT AUTO 2 % (0-6); Hematocrit 24.8 % (37.0-53.0); Hemoglobin 7.9 g/dL (13.5-17.5); IMMATURE GRAN ABSOLUTE AUTO 0.03 K/mm3 (0.00-0.10); IMMATURE GRAN PERCENT AUTO 0 % (0-1); LYMPHOCYTES ABSOLUTE AUTO 0.69 K/mm3 (0.84-5.20); LYMPHOCYTES PERCENT AUTO 8 % (21-46); MONOCYTES ABSOLUTE AUTO 0.53 K/mm3 (0.16-1.47); MONOCYTES PERCENT AUTO 7 % (4-13); Mean Corpuscular HGB 29.4 pg (26.0-34.0); Mean Corpuscular HGB Conc 31.9 g/dL (31.5-36.5); Mean Corpuscular Volume 92 fL (80-100); Mean Platelet Volume 9.5 fL (9.1-12.4); NEUTROPHILS ABSOLUTE AUTO 6.71 K/mm3 (1.96-9.15); NEUTROPHILS PERCENT AUTO 82 % (41-73); Platelet Count 250 K/mm3 (150-400); RDW Coefficient Variation 16.3 % (11.7-14.2); RDW Standard Deviation 54.3 fL (35.1-46.3); Red Blood Cell Count 2.69 M/mm3 (4.30-5.90); White Blood Cell Count 8.18 K/mm3 (4.00-11.30)
[2020-04-16 00:35] LABS: Alanine Aminotransfer (ALT/SGP 34 U/L (12-78); Albumin, Blood 2.3 g/dL (3.4-5.0); Albumin/Globulin Ratio 0.5 (0.8-1.8); Alk Phos 85 U/L (50-136); Anion Gap 9 mmol/L (6-16); Aspartate Aminotrans (AST/SGOT 23 U/L (12-37); Bilirubin, Total 0.4 mg/dL (0.1-1.0); Blood Urea Nitrogen 15 mg/dL (8-24); Bun/Creatinine Ratio 14.6 (12.0-20.0); CO2, Blood 20 mmol/L (21-32); Chloride, Blood 111 mmol/L (98-108); Creatinine, Blood 1.03 mg/dL (0.60-1.20); Globulin, Blood 4.2 g/dL (2.2-4.0); Glomerular Filtration Rate >60 (60-); Glucose, Blood 233 mg/dL (70-99); Potassium, Blood 3.6 mmol/L (3.5-5.5); Sodium, Blood 140 mmol/L (136-145); Total Protein, Blood 6.5 g/dL (6.4-8.2); Troponin I 0.451 ng/mL (0.000-0.040)
[2020-04-16 01:05] LABS: PCO2 Arterial 28.2 mmHg (35-45); pH Blood Arterial 7.45 (7.35-7.45)
[2020-04-16 01:06] LABS: PO2 Arterial 48.1 mmHg (80-100)
[2020-04-16 01:41] LABS: Source, Urine Clean Catch
[2020-04-16 01:44] LABS: Bilirubin, Urine Neg (Neg); Blood, Urine 2+ (Neg); Glucose Qualitative, Urine 3+ (Neg); Ketones, Urine Neg (Neg); Leukocyte Esterase, Urine Neg (Neg); Nitrite, Urine Neg (Neg); Protein, Urine 4+ (Neg); Urobilinogen, Urine NORM (Normal)
[2020-04-16 01:50] LABS: Appearance, Urine Clear (Clear); Color, Urine Yellow (P-Yellow)
[2020-04-16 01:53] LABS: Bacteria Mod /hpf; Red Blood Cells, Urine 0-2 /hpf (0-2); Squamous Epithelial Cells Few /hpf (Few); White Blood Cells, Urine 0-2 /hpf (0-5)
--- NOTE | 2020-04-16 05:01 | NUR ---
PCU ADMIT / SHIFT SUMMARY PT BROUGHT TO PCU-16 FROM ER BY LAST @ APPROX 0300. PT A&O X4. VSS. SPO2 > 92% ON 6L HI-ALEKSANDR NC. PT DENIES OXYGEN USE AT HOME. PT BREATHING EVENLY & NONLABORIOUSLY. PT REPORTS IMPROVEMENT IN SYMPTOMS AFTER TREATMENT/CARE IN ER. MONITOR SHOWS SR, HR 70's-80's. PT REPORTS TAKING ALL HOME MEDICATIONS BUT REPORTS XARELTO ON HOLD FOR NOW AND IS UNCERTAIN WHEN HE IS TO RESTART MEDICATION AGAIN. NO EVENTS THIS SHIFT. WILL CONTINUE TO MONITOR & PROVIDE CARE UNTIL REPORT OFF TO DAY SHIFT RN.
[2020-04-16 05:09] LABS: Adenovirus Not Detected (NOT DETECT); Bordetella pertussis Not Detected (NOT DETECT); Chlamydophila pneumoniae Not Detected (NOT DETECT); Coronavirus 229E Not Detected (NOT DETECT); Coronavirus HKU1 Not Detected (NOT DETECT); Coronavirus NL63 Not Detected (NOT DETECT); Coronavirus OC43 Not Detected (NOT DETECT); Human Metapneumovirus Not Detected (NOT DETECT); Human Rhinovirus/Enterovirus Not Detected (NOT DETECT); Influenza A/2009-H1 Not Detected (NOT DETECT); Influenza A/H1 Not Detected (NOT DETECT); Influenza A/H3 Not Detected (NOT DETECT); Influenza B Not Detected (NOT DETECT); Mycoplasma pneumoniae Not Detected (NOT DETECT); Parainfluenza Virus 1 Not Detected (NOT DETECT); Parainfluenza Virus 2 Not Detected (NOT DETECT); Parainfluenza Virus 3 Not Detected (NOT DETECT); Parainfluenza Virus 4 Not Detected (NOT DETECT); Respiratory Syncytial Virus Not Detected (NOT DETECT); SARS-Cov-2 (COVID-19), BioFire Not Detected (NOT DETECT)
--- NOTE | 2020-04-16 06:42 | NUR ---
ELEVATED TROPONIN MD LINK NOTIFIED OF ELEVATED TROPONIN. W/ NEW ORDER FOR CARDIOLOGOY CONSULT. CONSULT CALLED TO ANSWERING SERVICE. NO PT C/O OF CP.
--- NOTE | 2020-04-16 07:48 | NUR ---
ASSUMING CARE OF PT, RECEIVED REPORT FROM HEMALATHA SÁNCHEZ. PT RESTING QUIETLY IN BED, NPO UNTIL CARDIOLOGY CONSULT.
--- NOTE | 2020-04-16 11:08 | NUR ---
DR PEACE HAS BEEN IN FOR EVALUATION. PER DR PEACE, PT CHANGED FROM HI-ALEKSANDR OXYGEN TO NASAL CANNULA AT 5L/MIN TO KEEP PATIENT O2 SATS 88% OR HIGHER. PT SATS RANGING 93% AT THIS TIME.
--- NOTE | 2020-04-16 14:03 | NUR ---
Echocardiogram performed.
--- NOTE | 2020-04-16 14:49 | NUR ---
PT C/O FRONTAL HEADACHE. DR PEACE NOTIFIED, VERBAL ORDER RECEIVED AND PLACED FOR TYLENOL. DR PEACE NOTIFIED OF REPEAT TROPONIN TRENDING DOWN. PER DR PEACE, NO MORE REPEAT TROPONINS NECESSARY.
--- NOTE | 2020-04-16 18:26 | NUR ---
SHIFT SUMMARY: PT RESTS T/OUT DAY, MEDICATED PER ORDERS WITH LASIX, PT USES URINAL APPROPRIATELY T/OUT SHIFT, AMBULATES TO AND FROM RESTROOM USING FWW WITH SBA IN EARLY EVENING. PT OXYGEN SATURATIONS TOLERATE AMBULATION WELL. PER DR PEACE, PT CHANGED FROM HI-ALEKSANDR OXYGEN TO N/C AT 5L/MIN WITH INTENTION TO KEEP O2 SATS ABOVE 88%. PT TOLERATES WELL. MOST RECENT TROPONIN SHOWS A DOWNWARD TREND. PT HAS CARDIAC HX WITH [facility]. REQUEST FOR RECORDS WAS FAXED AT THE REQUEST OF DR MOONEY. PT TO BE NPO AFTER MIDNIGHT FOR ULTRASOUND IN AM.
--- NOTE | 2020-04-16 23:32 | NUR ---
EPISODE OF CONFUSION AT APPROX 2230, PT FOUND STANDING NAKED AT BEDSIDE W/ GOWN, TELEMETRY, PIV, & URINE ON THE FLOOR. PT DENIES KNOWING WHERE HE IS OR WHAT HE IS DOING. WHEN ASKING PT WHAT HIS NAME & ARE, PT STATES "ASHISH" & "SATURDAY." PT DENIES FEELING OKAY & REPORTS "I FEEL LIKE I'M DRUNK." PT VSS. WITHIN A FEW MOMENTS PT THEN RECOGNIZED 2ND NURSE ENTERING RM & GREETED NURSE BY CORRECT NAME. PT THEN ABLE TO STATE OWN NAME, , & LOCATION APPROPRIATELY. BED ALARM NOW ON PT. WILL CONTINUE TO MONITOR & PROVIDE CARE.
--- NOTE | 2020-04-17 05:30 | NUR ---
SHIFT SUMMARY PT A&O X4 W/ 1 EPISODE OF CONFUSION THIS SHIFT, SEE PREVIOUS NOTE. PT UNABLE TO RECALL EPISODE OF CONFUSION DURING NIGHT. NO OTHER EVENTS. VSS. MONITOR SHOWS SR, HR 60's-80's. SPO2 > 92% ON 4L-5L NC. WILL CONTINUE TO MONITOR & PROVIDE CARE UNTIL REPORT OFF TO DAY SHIFT RN.
[2020-04-17 05:41] LABS: Anion Gap 6 mmol/L (6-16); Blood Urea Nitrogen 16 mg/dL (8-24); Bun/Creatinine Ratio 16.1 (12.0-20.0); CO2, Blood 25 mmol/L (21-32); Calcium, Blood 8.2 mg/dL (8.5-10.1); Chloride, Blood 107 mmol/L (98-108); Creatinine, Blood 0.99 mg/dL (0.60-1.20); Glomerular Filtration Rate >60 (60-); Glucose, Blood 164 mg/dL (70-99); Potassium, Blood 3.4 mmol/L (3.5-5.5); Sodium, Blood 138 mmol/L (136-145)
--- NOTE | 2020-04-17 07:59 | NUR ---
ASSUMING CARE OF PT, RECEIVED REPORT FROM HEMALATHA SÁNCHEZ. PT ALERT UPON THIS RN ENTERING ROOM. PT AMBULATES TO AND FROM RESTROOM USING FWW. IMAGING DEPT TO ROOM FOR ULTRASOUND.
[2020-04-17 09:51] LABS: PCO2 Arterial 33.7 mmHg (35-45); PO2 Arterial 75.6 mmHg (80-100); pH Blood Arterial 7.46 (7.35-7.45)
--- NOTE | 2020-04-17 17:18 | NUR ---
SHIFT SUMMARY PATIENT ARRIVED TO THE FLOOR LATE THIS AM. PATIENT ALERT AND ORIENTED THIS SHIFT. PATIENT 1 PERSON ASSIST TO THE BEDSIDE COMODE THIS SHIFT. PATIENT LAYING IN BED THROUGH MUCH OF THIS SHIFT. PATIENT UP IN CHAIR FOR A SHORT WHILE AT LUNCHTIME. PATIENT USES URINAL AND CALLS APPROPRIATELY. PATIENT DENIES SOB SINCE ARRIVING TO THE FLOOR. PATIENT'S O2 SATS BELOW 90 ON RA THIS AFTERNOON, 1L O2 APPLIED, O2 RETURNED >90. PATIENT CURRENTLY SITTING UP IN BED WATCHING TELEVISION.
--- NOTE | 2020-04-17 22:33 | NUR ---
AFFECT CHEERFUL AT HS HE SPOKE WITH NURSE. HE TALKED ABOUT HIS COUNTRY OF . TOLERATED MEDS WELL. ORIENTED TO CALL LIGHT. CALL LIGHT IN REACH AND AGREES NOT TO GET OUT OF BED WITHOUT CALLING STAFF IF FEELING DIZZY.
--- NOTE | 2020-04-18 03:31 | NUR ---
SHIFT SUMMARY HAS BEEN RESTING QUIETLY WITH OCCASIONAL INTERRUPTIONS, A FEW TIMES TRIED TO GET OUT OF BED AND WAS INTERCEPTED BY STAFF TO PREVENT FALLING. CALL LIGHT IN REACH
[2020-04-18 08:18] LABS: Anion Gap 7 mmol/L (6-16); Blood Urea Nitrogen 19 mg/dL (8-24); Bun/Creatinine Ratio 18.6 (12.0-20.0); CO2, Blood 25 mmol/L (21-32); Calcium, Blood 7.9 mg/dL (8.5-10.1); Chloride, Blood 105 mmol/L (98-108); Creatinine, Blood 1.02 mg/dL (0.60-1.20); Glomerular Filtration Rate >60 (60-); Glucose, Blood 164 mg/dL (70-99); Potassium, Blood 3.8 mmol/L (3.5-5.5); Sodium, Blood 137 mmol/L (136-145)
--- NOTE | 2020-04-18 18:04 | NUR ---
SHIFT SUMMARY PATIENT ALERT AND ORIENTED, COOPERATIVE WITH CARE THIS SHIFT. PATIENT SITTING UP IN BED THROUGHOUT THIS SHIFT. PATIENT REPOSITIONS SELF, PATIENT 1 PERSON ASSIST TO THE BEDSIDE COMODE. PATIENT'S DAUGHTER IN THE ROOM TO VISIT THIS SHIFT. PATIENT WITHOUT RESPIRATORY DISTRESS THIS SHIFT. PATIENT SITTING UP IN BED WATCHING TELEVISION, EATING DINNER.
--- NOTE | 2020-04-19 06:02 | NUR ---
SHIFT SUMMARY PATIENT ALERT AND ORIENTED. HAD NO COMPLAINTS OF PAIN OR SHORTNESS OF BREATH. PATIENT CURRENTLY ON 1 LITER O2 VIA NASAL CANULA. PATIENTS IV PATENT AND FLUSHED. BED IN LOWEST POSITION WITH WHEEL LOCKED. CALL LIGHT WITHIN REACH. REPORT GIVEN TO ONCOMING RN.
--- NOTE | 2020-04-19 07:46 | NUR ---
SR @ 62 PER TELE
[2020-04-19 12:00] LABS: Anion Gap 9 mmol/L (6-16); Blood Urea Nitrogen 24 mg/dL (8-24); Bun/Creatinine Ratio 23.3 (12.0-20.0); CO2, Blood 23 mmol/L (21-32); Calcium, Blood 8.5 mg/dL (8.5-10.1); Chloride, Blood 102 mmol/L (98-108); Creatinine, Blood 1.03 mg/dL (0.60-1.20); Glomerular Filtration Rate >60 (60-); Glucose, Blood 238 mg/dL (70-99); Potassium, Blood 4.1 mmol/L (3.5-5.5); Sodium, Blood 134 mmol/L (136-145)
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
--- NOTE | 2020-04-19 16:59 | NUR ---
SHIFT SUMMARY TRIALED PATIENT ON ROOM AIR AND HIS SATS WERE 84-87 AND HE FELT SOB. NO OTHER COMPLAINTS TODAY. FREQUENTLY CALLS AND UP TO BSC. ON 1L PER NC
--- NOTE | 2020-04-19 23:11 | NUR ---
PT IS A/O X1 TO YEAR. I HAD TO INCREASE HIS O2 FROM 2 L TO 3L VIA NC. WITH 2L VIA NC HE WAS SATTING AROUND 88% HE IS SATTING IN THE LOW 90'S WITH 3 L.
--- NOTE | 2020-04-20 03:55 | NUR ---
dsp engineer summary pt a/o x1 to year. when i asked for his name, he said "Quinton Graham". pt started on 2L o2 via nc when i got on shift satting in the low 90's. he is usually room air. in hopes of weaning him off of O2, i re-assesed his 02 which was around 88%. no sob noted. at this time he was sleeping. i increased his 02 to 3L which brought his sats up to low to mid 90's. o2 sat of 96% this morning at 0350. no sob noted. O2 titrated down to 2L. will continue to monitor. bed alarm on. call light within reach. bed in lowest position. pt has been sinus anastasia in the 50's tonight per telephone maintenance mechanic.
[2020-04-20 05:19] LABS: Bun/Creatinine Ratio 20.6 (12.0-20.0); Calcium, Blood 8.4 mg/dL (8.5-10.1); Creatinine, Blood 1.41 mg/dL (0.60-1.20); Magnesium, Blood 1.8 mg/dL (1.6-2.4); Potassium, Blood 4.3 mmol/L (3.5-5.5)
[2020-04-20] MEDS ORDERED: FURO20 PO (11:20)
[2020-04-20] MEDS ORDERED: METO25 PO (11:20)
[2020-04-20] MEDS ORDERED: AZIT500 PO (11:22)
[2020-04-20] MEDS ORDERED: CEFU500T30 PO (11:23)
--- NOTE | 2020-04-20 12:16 | NUR ---
DISCHARGE RESPTHER AMBULATE PT IN [place] FOR HOME O2 EVAL, PT WILL NOT NEED OXYGEN, BIOX >90% RA. DR PEACE IN TO ASSESS PT, STATE HE MAY GO HOME TODAY, PROVIDE ORDERS. 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 NEW SCRIPTS FAXED TO [facility]. IV D/C INTACT. OIL PAINTER ASSIST PT TO DRESS/GATHER BELONGINGS, HE DECLINE SHOWER. DR GARCÍA/PCP NOTIFIED OF D/C HE HAS TELE APPT TOMORROW, NOTIFIED OF NEED FOR CBC ON SATURDAY, RESTART XARELTO IF HGB >8, PCP TO MANAGE. D/C INSTRUCT REVIEWED w PT. WHEN DAUGHTER ARRIVES WILL REVIEW w FAMILY. PT SITTING UP FOR LUNCH. A/O X3, PLEASANT AFFECT.
--- NOTE | 2020-04-20 14:16 | NUR ---
DAUGHTER ARRIVE FOR TRANSPORTATION HOME. D/C INSTRUCT REVIEWED. W/C ESCORT FROM HOSP PROVIDED. THEY STATE SATISFACTION/APPRECIATION.
== END 2020-04-20 14:16 | disposition home or self-care (01) | DRG 280 ==
LOC: ER 23:35 → PCU 04-16 02:14 → MEDS 04-17 10:43
PROVIDERS: Emergency Medicine; Hospitalist; ADMIT Family Medicine
PROC: 5A09357 Assistance with Respiratory Ventilation, Less than 24 Consecutive Hours, Continuous Positive Airway Pressure (ICD-10-PCS; principal; 2020-04-16)
DX: I11.0 Hypertensive heart disease with heart failure (principal); I50.31 Acute diastolic (congestive) heart failure; I21.4 Non-ST elevation (NSTEMI) myocardial infarction; K57.31 Diverticulosis of large intestine without perforation or abscess with bleeding; J96.01 Acute respiratory failure with hypoxia; J18.9 Pneumonia, unspecified organism; I16.1 Hypertensive emergency; E03.9 Hypothyroidism, unspecified; E87.5 Hyperkalemia; M06.9 Rheumatoid arthritis, unspecified; E78.5 Hyperlipidemia, unspecified; Z90.49 Acquired absence of other specified parts of digestive tract; Z95.2 Presence of prosthetic heart valve; I35.0 Nonrheumatic aortic (valve) stenosis; G30.9 Alzheimer's disease, unspecified; F02.80 Dementia in other diseases classified elsewhere, unspecified severity, without behavioral disturbance, psychotic disturbance, mood disturbance, and anxiety; I70.1 Atherosclerosis of renal artery; I48.0 Paroxysmal atrial fibrillation; Z87.891 Personal history of nicotine dependence
CPT/HCPCS: 0202U; 36415; 36600; 71045; 80048; 80053; 81001; 82803; 82947; 83605; 83735; 83880; 84145; 84484; 85025; 87040; 87086; 93005; 93010; 93306; 93975; 94660; 94761; 96374; 98960; 99285-25; A9270; A9270-GY; J1815; J1940; J3475

== ENCOUNTER 2020-08-03 10:00 | Outpatient (CLI) | payer OTHER ==
[~2020-08-03 10:00] MED LIST changes: +AZIT500 PO; +CEFU500T30 PO; +FURO20 PO; +METO25 PO
[2020-08-05 22:10] LABS: ADENOVIRUS F 40/41 Not Detected (Not Detected); ASTROVIRUS Not Detected (Not Detected); C DIFFICILE TOXIN A/B Detected (Not Detected); CRYPTOSPORIDIUM Not Detected (Not Detected); CYCLOSPORA CAYETANENSIS Not Detected (Not Detected); ENTAMOEBA HISTOLYTICA Not Detected (Not Detected); ENTEROAGGREGATIVE E COLI Not Detected (Not Detected); ENTEROPATHOGENIC E COLI Not Detected (Not Detected); ENTEROTOXIGENIC E COLI Not Detected (Not Detected); GIARDIA LAMBLIA Not Detected (Not Detected); NOROVIRUS GI/GII Not Detected (Not Detected); PLESIOMONAS SHIGELLOIDES Not Detected (Not Detected); ROTAVIRUS A Not Detected (Not Detected); SALMONELLA Not Detected (Not Detected); SAPOVIRUS Not Detected (Not Detected); SHIGA-TOXIN-PRODUCING E COLI Not Detected (Not Detected); SHIGELLA/ENTEROINVASIVE E COLI Not Detected (Not Detected); VIBRIO Not Detected (Not Detected); VIBRIO CHOLERAE Not Detected (Not Detected); YERSINIA ENTEROCOLITICA Not Detected (Not Detected)
== END 2020-08-04 | disposition home or self-care (01) ==
LOC: LAB 10:00
PROVIDERS: Internal Medicine
DX: R19.7 Diarrhea, unspecified (principal)
CPT/HCPCS: 0097U; 87324

== ENCOUNTER 2021-03-02 12:43 | Emergency (ER) | payer OTHER ==
[~2021-03-02] VITALS: Ht 165.1 cm; Wt 68.0 kg
[2021-03-02] MEDS ORDERED: ASCO500 PO (13:15)
[2021-03-02] MEDS ORDERED: TAMS.4ER PO (13:19)
[2021-03-02 13:25] LABS: BASOPHILS ABSOLUTE AUTO 0.03 K/mm3 (0.00-0.23); BASOPHILS PERCENT AUTO 0 % (0-2); EOSINOPHILS ABSOLUTE AUTO 0.05 K/mm3 (0.00-0.68); EOSINOPHILS PERCENT AUTO 1 % (0-6); Hematocrit 33.4 % (37.0-53.0); IMMATURE GRAN ABSOLUTE AUTO 0.06 K/mm3 (0.00-0.10); IMMATURE GRAN PERCENT AUTO 1 % (0-1); LYMPHOCYTES ABSOLUTE AUTO 0.73 K/mm3 (0.84-5.20); LYMPHOCYTES PERCENT AUTO 8 % (21-46); MONOCYTES ABSOLUTE AUTO 0.59 K/mm3 (0.16-1.47); MONOCYTES PERCENT AUTO 7 % (4-13); Mean Corpuscular HGB 30.1 pg (26.0-34.0); Mean Corpuscular HGB Conc 32.9 g/dL (31.5-36.5); Mean Corpuscular Volume 91 fL (80-100); Mean Platelet Volume 9.4 fL (9.1-12.4); NEUTROPHILS ABSOLUTE AUTO 7.49 K/mm3 (1.96-9.15); NEUTROPHILS PERCENT AUTO 84 % (41-73); Platelet Count 222 K/mm3 (150-400); RDW Coefficient Variation 14.7 % (11.7-14.2); RDW Standard Deviation 49.1 fL (35.1-46.3); Red Blood Cell Count 3.66 M/mm3 (4.30-5.90); White Blood Cell Count 8.95 K/mm3 (4.00-11.30)
[2021-03-02] MEDS ORDERED: TRULICITY1.5 MG/0.1 SC (13:34)
[2021-03-02] MEDS ORDERED: FOLI1 PO (13:34)
[2021-03-02] MEDS ORDERED: FLUN25SP (13:37)
[2021-03-02 13:38] LABS: Albumin, Blood 3.3 g/dL (3.4-5.0); Albumin/Globulin Ratio 0.9 (0.8-1.8); Bilirubin, Total 0.3 mg/dL (0.1-1.0); Bun/Creatinine Ratio 28.5 (12.0-20.0); Creatinine, Blood 1.23 mg/dL (0.60-1.20); Globulin, Blood 3.7 g/dL (2.2-4.0); Potassium, Blood 3.4 mmol/L (3.5-5.5)
== END 2021-03-02 15:30 | disposition home or self-care (01) ==
LOC: ER 12:43
PROVIDERS: Emergency Medicine
DX: E11.649 Type 2 diabetes mellitus with hypoglycemia without coma (principal); I10 Essential (primary) hypertension; I48.91 Unspecified atrial fibrillation; Z88.0 Allergy status to penicillin; Z88.2 Allergy status to sulfonamides; Z88.1 Allergy status to other antibiotic agents
CPT/HCPCS: 80053; 82947; 85025; 99285